=== PATIENT | male | born 1935 | race Caucasian/White ===

== ENCOUNTER 2023-08-03 11:02 | Outpatient (CLI) | payer MEDICARE, SELFPAY | END 2023-08-03 11:03 | disposition home or self-care (01) | PROVIDERS: PCP Family Medicine; Visit Provider Family Medicine | DX: I10 Essential (primary) hypertension (principal); E78.5 Hyperlipidemia, unspecified; R35.1 Nocturia; G47.00 Insomnia, unspecified; R80.9 Proteinuria, unspecified; N40.1 Benign prostatic hyperplasia with lower urinary tract symptoms | CPT/HCPCS: 80053; 80061; 82043; 82570; 87086; 87186; G0103 ==

== ENCOUNTER 2023-09-29 12:46 | Outpatient (CLI) | payer MEDICARE, SELFPAY | END 2023-09-29 12:47 | disposition home or self-care (01) | LOC: NFLDREF 09-30 08:15 | PROVIDERS: PCP Family Medicine; Referring Provider Family Medicine; Visit Provider Family Medicine | DX: N39.0 Urinary tract infection, site not specified (principal) | CPT/HCPCS: 87086 ==

== ENCOUNTER 2023-12-29 12:47 | Outpatient (CLI) | payer MEDICARE, SELFPAY | END 2023-12-29 12:48 | disposition home or self-care (01) | LOC: LKVREF 12:48 | PROVIDERS: PCP Family Medicine; Visit Provider Family Medicine | DX: N39.0 Urinary tract infection, site not specified (principal) | CPT/HCPCS: 87086 ==

== ENCOUNTER 2024-03-04 14:57 | Outpatient (CLI) | payer MEDICARE, SELFPAY | END 2024-03-04 14:58 | disposition home or self-care (01) | LOC: NFLDREF 03-05 18:59 | PROVIDERS: PCP Family Medicine; Referring Provider Family Medicine; Visit Provider Family Medicine | DX: N39.0 Urinary tract infection, site not specified (principal); B96.5 Pseudomonas (aeruginosa) (mallei) (pseudomallei) as the cause of diseases classified elsewhere | CPT/HCPCS: 87086; 87186 ==

== ENCOUNTER 2024-03-29 12:19 | Outpatient (CLI) | payer MEDICARE, SELFPAY | END 2024-03-29 12:20 | disposition home or self-care (01) | LOC: LKVREF 12:24 | PROVIDERS: PCP Family Medicine; Visit Provider Family Medicine | DX: I10 Essential (primary) hypertension (principal); N39.0 Urinary tract infection, site not specified | CPT/HCPCS: 80048; 87086 ==

== ENCOUNTER 2024-04-29 12:30 | Outpatient (CLI) | payer MEDICARE, SELFPAY | END 2024-04-29 12:31 | disposition home or self-care (01) | LOC: LKVREF 12:30 | PROVIDERS: PCP Family Medicine; Visit Provider Nurse Practitioner Family | DX: L03.116 Cellulitis of left lower limb (principal); B96.5 Pseudomonas (aeruginosa) (mallei) (pseudomallei) as the cause of diseases classified elsewhere; B95.2 Enterococcus as the cause of diseases classified elsewhere | CPT/HCPCS: 87070; 87186 ==

== ENCOUNTER 2024-06-02 09:29 | Outpatient (CLI) | payer MEDICARE, SELFPAY | END 2024-06-02 09:30 | disposition home or self-care (01) | LOC: WOUND 09:29 | PROVIDERS: PCP Family Medicine; Visit Provider Nurse Practitioner Family | DX: I87.2 Venous insufficiency (chronic) (peripheral) (principal); I73.9 Peripheral vascular disease, unspecified; L97.222 Non-pressure chronic ulcer of left calf with fat layer exposed; L97.212 Non-pressure chronic ulcer of right calf with fat layer exposed; L97.818 Non-pressure chronic ulcer of other part of right lower leg with other specified severity; E11.42 Type 2 diabetes mellitus with diabetic polyneuropathy; Z79.84 Long term (current) use of oral hypoglycemic drugs | CPT/HCPCS: 11042; G0463 ==

== ENCOUNTER 2024-06-10 14:16 | Outpatient (CLI) | payer MEDICARE, SELFPAY | END 2024-06-10 14:17 | disposition home or self-care (01) | LOC: WOUND 14:16 | PROVIDERS: PCP Family Medicine; Visit Provider Nurse Practitioner Family | DX: I87.2 Venous insufficiency (chronic) (peripheral) (principal); I89.0 Lymphedema, not elsewhere classified; I73.9 Peripheral vascular disease, unspecified; L97.222 Non-pressure chronic ulcer of left calf with fat layer exposed; L97.212 Non-pressure chronic ulcer of right calf with fat layer exposed; L97.812 Non-pressure chronic ulcer of other part of right lower leg with fat layer exposed; E11.42 Type 2 diabetes mellitus with diabetic polyneuropathy; Z79.84 Long term (current) use of oral hypoglycemic drugs | CPT/HCPCS: 11042; 97597 ==

== ENCOUNTER 2024-06-17 09:59 | Outpatient (CLI) | payer MEDICARE, SELFPAY | END 2024-06-17 10:00 | disposition home or self-care (01) | LOC: WOUND 09:59 | PROVIDERS: PCP Family Medicine; Visit Provider Nurse Practitioner Family | DX: I87.2 Venous insufficiency (chronic) (peripheral) (principal); I89.0 Lymphedema, not elsewhere classified; I73.9 Peripheral vascular disease, unspecified; L97.222 Non-pressure chronic ulcer of left calf with fat layer exposed; L97.811 Non-pressure chronic ulcer of other part of right lower leg limited to breakdown of skin; E11.42 Type 2 diabetes mellitus with diabetic polyneuropathy; Z79.84 Long term (current) use of oral hypoglycemic drugs | CPT/HCPCS: 11042; 97597 ==

== ENCOUNTER 2024-07-08 13:16 | Outpatient (CLI) | payer MEDICARE, SELFPAY | END 2024-07-08 13:17 | disposition home or self-care (01) | PROVIDERS: PCP Family Medicine; Visit Provider Nurse Practitioner Family | DX: I89.0 Lymphedema, not elsewhere classified (principal); I73.9 Peripheral vascular disease, unspecified; E11.42 Type 2 diabetes mellitus with diabetic polyneuropathy; Z79.84 Long term (current) use of oral hypoglycemic drugs | CPT/HCPCS: G0463 ==

== ENCOUNTER 2024-09-09 13:50 | Outpatient (CLI) | payer MEDICARE, SELFPAY | END 2024-09-09 13:51 | disposition home or self-care (01) | LOC: NFLDREF 09-13 18:41 | PROVIDERS: PCP Family Medicine; Referring Provider Family Medicine | DX: R30.0 Dysuria (principal); N39.0 Urinary tract infection, site not specified | CPT/HCPCS: 87086 ==

== ENCOUNTER 2024-10-24 11:16 | Outpatient (CLI) | payer MEDICARE, SELFPAY | END 2024-10-24 11:17 | disposition home or self-care (01) | PROVIDERS: PCP Family Medicine; Visit Provider Family Medicine | DX: D64.9 Anemia, unspecified (principal); E78.5 Hyperlipidemia, unspecified; I10 Essential (primary) hypertension; E11.42 Type 2 diabetes mellitus with diabetic polyneuropathy; R26.81 Unsteadiness on feet; Z12.5 Encounter for screening for malignant neoplasm of prostate | CPT/HCPCS: 80053; 80061; 82043; 82570; 82607; 82728; 83540; 83550; G0103 ==

== ENCOUNTER 2024-11-09 09:01 | Outpatient (CLI) | payer MEDICARE, SELFPAY ==
[2024-11-09 10:45] LABS: Basophils Absolute Auto 0.03 K/uL (0.00-0.30); Basophils Percent Auto 0.5 % (0.0-3.0); Eosinophils Absolute Auto 0.06 K/uL (0.00-0.50); Eosinophils Percent Auto 1.1 % (0.0-7.0); Hematocrit 38.4 % (37.0-53.0); Hemoglobin* 12.2 gm/dL (13.5-17.5); Immature Granulocytes Abs Auto 0.01 K/uL (0.00-0.30); Immature Granulocytes Pct Auto 0.2 %; Lymphocytes Percent Auto 17.9 % (20-44); Mean Corpuscular HGB Conc 32 gm/dL (32-36); Mean Corpuscular Hemoglobin 29 pg (26-34); Mean Corpuscular Volume 91 fL (80-100); Monocytes Percent Auto 12.8 % (0.0-11.0); Neutrophils Percent Auto 67.5 % (42.0-72.0); Platelet Count* 177 K/uL (140-440); RDW Coefficient of Variation % 14.4 % (11.5-15.5); Red Blood Count 4.24 m/uL (4.30-5.90); White Blood Count* 5.48 K/uL (4.50-11.00)
--- NOTE | 2024-11-09 10:45 | CRLHL7_ITS ---
For Patients: As a result of the Cures Act, medical imaging exams and procedure reports are released immediately into your electronic medical record. You may view this report before your referring provider. If you have questions, please contact your health care provider. 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 Hammertoe deformities. Degenerative joint disease. No acute periostitis or cortical destruction. No acute fracture. Impression: No evidence of osteomyelitis. Dictated by Fantasma Garcia MD @ 11/09/2024 11:12:19 AM (Electronically Signed)
[2024-11-09 10:50] LABS: Slide Review Reflex No
[2024-11-09 11:10] LABS: Chloride* 100 mmol/L (96-114); Potassium* 3.9 mmol/L (3.6-5.1); Sodium* 138 mmol/L (135-149)
[2024-11-09 11:14] LABS: Anion Gap 10 mEq/L (7-15); Blood Urea Nitrogen* 20 mg/dL (7-30); Calcium* 9.3 mg/dL (8.4-10.6); Carbon Dioxide* 28 mmol/L (20-32); Estimated Glomerular Filt Rate 73 ml/min; Glucose* 176 mg/dL (60-115)
[2024-11-09 11:41] LABS: Erythrocyte SedimentationRate* 15 mm/hr (2-15)
== END 2024-11-09 09:02 | disposition home or self-care (01) ==
PROVIDERS: PCP Family Medicine; Referring Provider Family Medicine; Visit Provider Nurse Practitioner Family
DX: I87.2 Venous insufficiency (chronic) (peripheral) (principal); I73.9 Peripheral vascular disease, unspecified; I89.0 Lymphedema, not elsewhere classified; L97.812 Non-pressure chronic ulcer of other part of right lower leg with fat layer exposed; L97.821 Non-pressure chronic ulcer of other part of left lower leg limited to breakdown of skin; S81.002A Unspecified open wound, left knee, initial encounter; E11.621 Type 2 diabetes mellitus with foot ulcer; E11.42 Type 2 diabetes mellitus with diabetic polyneuropathy; L97.511 Non-pressure chronic ulcer of other part of right foot limited to breakdown of skin; Z79.84 Long term (current) use of oral hypoglycemic drugs
CPT/HCPCS: 11042; 11045; 36415; 73630; 80048; 85025; 85651; 86140; G0463

== ENCOUNTER 2024-11-16 09:30 | Outpatient (CLI) | payer MEDICARE, SELFPAY | END 2024-11-16 09:31 | disposition home or self-care (01) | LOC: WOUND 09:30 | PROVIDERS: PCP Family Medicine; Visit Provider Family Medicine | DX: I87.2 Venous insufficiency (chronic) (peripheral) (principal); I89.0 Lymphedema, not elsewhere classified; I73.9 Peripheral vascular disease, unspecified; L97.822 Non-pressure chronic ulcer of other part of left lower leg with fat layer exposed; L97.812 Non-pressure chronic ulcer of other part of right lower leg with fat layer exposed; E11.42 Type 2 diabetes mellitus with diabetic polyneuropathy; Z79.84 Long term (current) use of oral hypoglycemic drugs | CPT/HCPCS: 11042; 11045 ==

== ENCOUNTER 2024-11-22 09:43 | Outpatient (CLI) | payer MEDICARE, SELFPAY | END 2024-11-22 09:44 | disposition home or self-care (01) | LOC: WOUND 09:43 | PROVIDERS: PCP Family Medicine; Visit Provider Physician Assistant | DX: I87.2 Venous insufficiency (chronic) (peripheral) (principal); I89.0 Lymphedema, not elsewhere classified; I73.9 Peripheral vascular disease, unspecified; L97.812 Non-pressure chronic ulcer of other part of right lower leg with fat layer exposed; L97.822 Non-pressure chronic ulcer of other part of left lower leg with fat layer exposed; E11.42 Type 2 diabetes mellitus with diabetic polyneuropathy; Z79.84 Long term (current) use of oral hypoglycemic drugs | CPT/HCPCS: 97597; 97598 ==

== ENCOUNTER 2024-11-25 13:17 | Emergency (ER) | payer MEDICARE, SELFPAY ==
[2024-11-25] VITALS (35 sets, daily range): BP systolic 161–206; BP diastolic 104–145; PULSE 79–107; RESP 15–23; TEMP 36.3; O2SAT 91–98
--- OUTSIDE RECORDS SUMMARY | 2024-11-25 13:20 | XMS_ITS | Clinical Summary ---
Author Organization [place] Address [facility] 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 and other lower urinary tract symptoms (LUTS) 1 TABLET DAILY 90 4 4 Active ZOLOFT 50 MG OR TABSIndications:Un specified acute reaction to stress,Diplopia 1 TAB PO QD (Once per day) 30 1 4 Active RESTORIL 7.5 MG OR CAPSIndications:Un specified acute reaction to stress,Diplopia 1 CAPSULE AT BEDTIME NEEDED 7 0 4 Active RESTORIL 15 MG OR CAPS 1-2 CAPSULE AT BEDTIME NEEDED 20 0 4 Active VIAGRA 50 MG OR TABS 1 TABLET DAILY NEEDED 6 12 4 Active ZOCOR 40 MG OR TABSIndications:Mi xed hyperlipidemia 1 Tab PO QD (Once per day) IN THE EVENING 30 4 5 Active TRIAMTERENE-HCTZ 37.5-25 MG OR TABS 1 TABLET DAILY 30 no add'l refills until MD appt. 5 Active ACIPHEX 20 MG OR TBEC 1 TABLET EVERY MORNING 30 No add'l refills until MD appt. 5 Active Active Problems Problem Noted Date Diagnosed Date Mixed hyperlipidemia 12/19/2003 Esophageal reflux 12/19/2003 Essential hypertension 12/19/2003 Overview (02/22/2015): Problem list name updated by automated process. Provider to review Immunizations Immunization Administration Dates Next Due TD,PF 7+ (Tenivac) 03/15/1997 Family History Medical History Relation Comments Cancer Brother 61 YO A NEURYSM / MELANOMA Cancer Father 77 YO T HROAT CANCER Family History Negative Mother 86 YO Cancer Sister 1 74 YO BREAST Cancer Sister 2 72 YO BREAST & U TERINE Cancer Sister 3 70 YO NOSE CANCE R Relation Status Comments Brother Father Mother Sister 1 Sister 2 Sister 3 Social History Tobacco Use Types Packs/Day Years Used Date Smoking Tobacco: Former Cigarettes Q uit: 01/06/1972 Alcohol Use Standard Drinks/Week Comments Yes 0 (1 standard drink = 0.6 oz pur e alcohol) 2 PER DAY Adolescent Education Answer Date Record ed Getting School Help Needed Not on file 08/17 Sex and Gender Information Value Date Recorded Sex Assigned at Not on file Legal Sex Male 3:15 AM [employer] Gender Identity Not on file Sexual Orientation Not on file Last Filed Vital Signs Vital Sign Reading Time Taken Comments Blood Pressure 157/99 08/18/2023 12:00 PM CDT Pulse 94 08/18/2023 12:00 PM CDT Temperature 36.4 C (97.5 F) 08/18/2023 8:35 AM CDT Respiratory Rate 20 08/18/2023 8:35 AM CDT Oxygen Saturation 96% 08/18/2023 12:00 PM CDT Inhaled Oxygen Concentration - - Weight 120.2 kg (265 lb) 08/18/2023 8:35 AM CDT Height 190.5 cm (6' 3) 03/07/2004 2:18 PM CDT Body Mass Index - - Plan of Treatment Health Maintenance Due Date Last Done Comments ADVANCE CARE PLANNING 1937 ANNUAL REVIEW OF HM ORDERS 1937 FALL RISK ASSESSMENT 2002 MEDICARE ANNUAL WELLNESS VISIT 2002 LIPID 08/28/2005 08/28/2004, 12/19/2003 RSV VACCINE (1 - 1-dose 75+ series) 2012 ZOSTER VACCINE (2 of 3) 02/02/2016 12/08/2015 COVID-19 VACCINE ( season) 2024 11/13/2021 PHQ-2 (once per calendar year) 2024 BMP 08/17/2024 08/18/2023, 07/23, 12/19/2003, Additional history exists INFLUENZA VACCINE (Season Ended) 2025 02/05/2021, 03/01/2020, 03/26/2019, Additional history exists DTAP/TDAP/TD VACCINE (3 - Td or Tdap) 03/26/2026 03/26/2016, 01/20/2006, 03/15/1997, Additional history exists PNEUMOCOCCAL VACCINE 50+ YEARS Completed 02/07/2015, 07/05/2014, 05/13/2005 HPV VACCINE Aged Out No longer eligi ble based on patient's age to complete this topic MENINGITIS VACCINE Aged Out No longer eligible based on patient's age to complete this topic Procedures Procedure Name Priority Date/Time Associated Diagnosis Comments BASIC METABOLIC PANEL STAT 08/18/2023 8:37 AM CDT CL AFF A.M.A. LIPID PANEL Routine 08/28/2004 10:41 AM CDT Mixed Hyperlipidemia from Last 3 Months or Most Recently Relevant to Health Maintenance Results * (ABNORMAL) Basic metabolic panel (08/18/2023 8:37 AM CDT) [facility] Sodium 138 135 - 145 mmol/L 08/18/2023 9:19 AM CDT [facility] Comment:Reference intervals for this test were updated on 02/17/2023 to more accurately reflect our healthy population. There may be differences in the flagging of prior results with similar values performed with this method. Interpretation of those prior results can be made in the context of the updated reference intervals. Potassium 4.1 3.4 - 5.3 mmol/L 08/18/2023 9:19 AM CDT [facility] Chloride 100 98 - 107 mmol/L 08/18/2023 9:19 AM CDT [facility] Carbon Dioxide (CO2) 21(L) 22 - 29 mmol/L 08/18/2023 9:19 AM CDT [facility] Anion Gap 17(H) 7 - 15 mmol/L 08/18/2023 9:19 AM CDT [facility] Urea Nitrogen 20.6 8.0 - 23.0 mg/dL 08/18/2023 9:19 AM CDT [facility] Creatinine 0.97 0.67 - 1.17 mg/dL 08/18/2023 9:19 AM CDT LABORATORY GFR Estimate 76 >60 mL/min/1. 73m2 08/18/2023 9:19 AM CDT LABORATORY Calcium 9.9 8.8 - 10.2 mg/dL 08/18/2023 9:19 AM CDT LABORATORY Glucose 223(H) 70 - 99 mg/dL 08/18/2023 9:19 AM CDT LABORATORY Blood BLOOD SPECIMEN / Unknown Venipuncture / Unknown 08/18/2023 8:37 AM CDT 08/18/2023 8:46 AM CDT us Magdi Mott MD LAB - BLOOD ORDERABLES Fi nal Result LABORATORY [facility] [address] Lab (1st floor, no room number) [place] [id number] * (ABNORMAL) A.M.A. LIPID PANEL (08/28/2004 10:41 AM CDT) [facility] Cholesterol 199 0 - 200 mg/dL [facility] Comment: Cholesterol Reference Range: <200 The NCEP recommends further evaluation of: 1. Patients with cholesterol greater than 200 mg/dL if additional risk factors are present. 2. All patients with a cholesterol greater than 240 mg/dL. Triglycerides 211(H) 0 - 150 mg/dL [facility] HDL Cholesterol 35(L) >40 mg/dL [facility] [place] LDL Cholesterol Calculated 122 0 - 129 mg/dL [facility] VLDL-Cholesterol 42(H) 0 - 30 mg/dL [facility] Cholesterol/HDL Ratio 5.7(H) 0.0 - 5.0 [facility] 08/28/2004 10:4 1 AM CDT 08/28/2004 10:46 AM CDT us Mikel Stratton MD LABORATORY Final Result [facility] [address] [place] [address] from Last 3 Months or Most Recently Relevant to Health Maintenance Insurance * Guarantor: BRAD GUSMAN Account Type Relation to Patient Date of Phone Billing Address Personal/Family [address] [facility] [address] [place] [phone] [employer] MED[employer]ARE [employer]VANTAGE [employer] MED[employer]ARE ADVANTAGE * Guarantor: BRAD GUSMAN Account Type Relation to Patient Date of Phone Billing Address Personal/Family [address] [facility] [address] [place] [phone] [employer] MED[employer]ARE [employer]VANTAGE [employer]AGE Care Teams Stitch Separator Relationship Specialty Start Date End Date [facility] - [address] [address] PCP - General Internal Medicine 08/18/23
--- OUTSIDE RECORDS SUMMARY | 2024-11-25 13:20 | XMS_ITS | Continuity of Care Document ---
Author Organization [facility] Address [address] [place] [address] Care Team Providers Care Motor Expert Name Role Phone Elsewhere, Pcp Primary Care Provider Unavailabl e Source Comments Patient records contain information from all sites at [facility]. For routine questions regarding patient records, call [phone] during business hours, M-F 8:00 AM - 5:00 PM Central Time. Record requests for emergency care only can be directed to [phone] at any time.[facility] Encounters Date Type Department Care Team Description 5 Orders Only [facility] Reynaldo Anna M.D. 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 Med Refill 4 Refill Department of Family Medicine in [place], [place] [address] [place] [address] Reynaldo Pinto M.D. Med Refill 4 Refill Department of Family Medicine in [place], [place] [address] [place] [address] Reynaldo Pinto M.D. Med Refill 4 Orders Only [facility] Reynaldo Anna M.D. 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 Med Refill [address] [facility] 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. 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 Impaction Fecal (HCC) (Primary Dx) Discharge Disposition: Home or Self Care 3 9:12 AM CDT - 3 11:59 PM CDT Hospital Encounter Department of Laboratory Medicine in [address] [address] Estiven Merrill M.D. Atrial Fibrillation Longstanding Persistent (HCC) Discharge Disposition: Home or Self Care 3 11:15 AM CDT Office Visit Department of Orthopedic Surgery in [place], [place] [address] [place] [phone] Yudith Guallpa D.P.M. 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 3 Clinical Communication Department of Family Medicine in [address] [address] Reynaldo Pinto M.D. Forms (Home [facility] Care [facility] POC (cert 08/16-10/14/22) [id number]) 3 Clinical Communication Department of Family Medicine in [address] [address] Reynaldo Pinto M.D. 3 3:45 PM TUBER MACHINE OPERATOR HELPER - 3 12:03 AM TUBER MACHINE OPERATOR HELPER Emergency [facility] [address] [place] [phone] Erich Marti M.D. Scharrer, Erik A, M.D. Rhabdomyolysis (Primary Dx); Failure Renal Acute (Acute Kidney Injury) (HCC); Delirium; Decline Functional Status; Dehydration; Change Mental Status; Shock (HCC) Discharge Disposition: [facility] 3 10:30 PM TUBER MACHINE OPERATOR HELPER Ancillary Procedure Department of Emergency Medicine 3 8:10 PM TUBER MACHINE OPERATOR HELPER Ancillary Procedure Department of Family Medicine 3 Refill Department of Family Medicine in [address] [address] Reynaldo Pinto M.D. Med Refill 3 Refill Department of Family Medicine in [address] [place] [address] Reynaldo Pinto M.D. Med Refill 3 Refill Department of Family Medicine in [place] [address] [place] [address] Reynaldo Pinto M.D. Med Refill 3 Refill Department of Family Medicine in [place] [address] [place] [address] Reynaldo Pinto M.D. Med Refill 3 11:15 AM TUBER MACHINE OPERATOR HELPER Office Visit Department of Orthopedic Surgery in [address] [address] Yudith Guallpa D.P.M. 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 Nocturia (Primary Dx); Cancer Renal Cell Carcinoma Personal History; Nephrectomy Status Post; Solitary Kidney Acquired Discharge Disposition: Home or Self Care 3 11:00 AM TUBER MACHINE OPERATOR HELPER Nurse Only Department of Urology in [address] [address] Reynaldo Pinto M.D. Weiers, Jennifer J, RMarenNMaren Nurse Visit (Voiding diary forms and teaching) Discharge Disposition: Home or Self Care 3 10:27 AM TUBER MACHINE OPERATOR HELPER - 3 11:59 PM TUBER MACHINE OPERATOR HELPER Hospital Encounter Department of Laboratory Medicine in [address] [address] Addy Altamirano M.D. Benign Prostatic Hyperplasia Without Obstruction Discharge Disposition: Home or Self Care 3 Clinical Communication Department of Urology in [place], [place] [address] [place] [address] Nelly Neri, Ashok. 2 Clinical Communication Department of Family Medicine in [address] [phone] Reynaldo Pinto M.D. Communication 2 Refill Department of Family Medicine in [address] [address] Reynaldo Pinto M.D. Med Refill 2 Orders Only Department of Family Medicine in [address] [phone] Reynaldo Pinto M.D. 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 Benign Prostatic Hyperplasia Without Obstruction; Nocturia; Slowing Urinary Stream; Cancer Renal Cell Carcinoma Personal History; Nephrectomy Status Post; Solitary Kidney Acquired 2 Refill Department of [facility] in [address] [phone] Reynaldo Pinto M.D. Med Refill 2 1:45 PM TUBER MACHINE OPERATOR HELPER Office Visit Department of Orthopedic Surgery in [address] [phone] Margo Roblero APRN, C.N.P., M.S.N. Wound Foot Open Subsequent Right (Primary Dx) Discharge Disposition: Home or Self Care 2 12:21 PM CDT - 2 12:29 PM CDT Hospital Encounter Department of Laboratory Medicine in [address] [phone] Brent Gutierrez APRN, C.N.P., M.S. Benign Prostatic Hyperplasia Without Obstruction; Nocturia; Cancer Renal Cell Carcinoma Personal History; Nephrectomy Status Post; Solitary Kidney Acquired Discharge Disposition: Home or Self Care 2 12:30 PM CDT - 2 11:59 PM CDT Hospital Encounter Department of Radiology in [address] [address] Brent Gutierrez APRN C.N.P., M.S. Benign Prostatic Hyperplasia Without Obstruction; Nocturia; Cancer Renal Cell Carcinoma Personal History; Nephrectomy Status Post; Solitary Kidney Acquired Discharge Disposition: Home or Self Care 2 11:00 AM CDT Comprehensive Visit Department of Urology in [address] [phone] Brent Gutierrez APRN, C.N.P., M.S. Benign Prostatic Hyperplasia Without Obstruction (Primary Dx); Nocturia; Slowing Urinary Stream; Cancer Renal Cell Carcinoma Personal History; Nephrectomy Status Post; Solitary Kidney Acquired Discharge Disposition: Home or Self Care 2 Refill Department of Family Medicine in [place], [place] [address] [place] [phone] Reynaldo iPnto M.D. Med Refill 2 Clinical Communication Department of Orthopedic Surgery in [address] [phone] Margo Roblero APRN C.N.P., M.S.N. 2 11:25 AM CDT Ancillary Procedure Department of Wound Ostomy 2 11:15 AM CDT Nurse Only Department of Urology in [address] [address] Yudith Guallpa D.P.MMercedez Tapia, R.NMaren Nurse Visit (Routine nail care) Discharge Disposition: Home or Self Care 2 Refill Department of Family Medicine in [address] [address] Reynaldo Pinto M.D. Med Refill 2 Refill Department of Family Medicine in [address] [address] Reynaldo Pinto M.D. Med Refill 2 Refill Department of Family Medicine in [address] [address] Reynaldo Pinto M.D. Med Refill 2 11:45 AM CDT Comprehensive Visit Department of Orthopedic Surgery in [address] [address] Yudith Guallpa D.P.M. 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, in [address] [address] Natalie Escobar APRN, C.N.P., D.N.P. Injury Toenail Initial Left Discharge Disposition: Home or Self Care 2 11:00 AM CDT Office Visit Urgent Care, [facility], in [address] [place] [address] Natalie Escobar APRN, C.N.P., D.N.P. Injury Toenail Initial Left (Primary Dx) 2 Orders Only Department of Family Medicine in [address] [address] Reynaldo Pinto M.D. 2 11:30 AM CDT Office Visit Department of Family Medicine in [address] [address] Reynaldo Pinto M.D. 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 2 Refill Department of Family Medicine in [address] [address] Reynaldo Pinto M.D. Med Refill (Nortriptyline/) 2 Refill Department of Family Medicine in [address] [address] Reynaldo Pinto M.D. Med Refill 2 Refill Department of Family Medicine in [address] [address] Reynaldo Pinto M.D. Med Refill 2 Refill Department of Family Medicine in [address] [address] Adelina Harris, Klaus Med Refill 2 Refill Department of Family Medicine in [address] [address] Reynaldo Pinto M.D. Med Refill 2 Clinical Communication Department of Family Medicine in [address] [address] Reynaldo Pinto M.D. Med Refill 2 Refill Department of Family Medicine in [address] [address] Reynaldo Pinto M.D. Med Refill 2 Refill Department of Family Medicine in [address] [address] Reynaldo Pinto M.D. Med Refill 2 11:30 AM TUBER MACHINE OPERATOR HELPER Office Visit Department of Family Medicine in [address] [address] Reynaldo Pinto M.D. 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 Med Refill [address] [facility] MNT Zurdo Ventura D.O. 1 Refill Department of Family Medicine in [address] [address] Reynaldo Pinto M.D. Med Refill 1 Refill Department of Family Medicine in [address] [address] Reynaldo Pinto M.D. Med Refill 1 Clinical Communication Department of Family Medicine in [address] [address] Reynaldo Pinto M.D. 1 Refill Department of Family Medicine in [address] [address] Reynaldo Pinto M.D. Med Refill 1 Refill Department of Family Medicine in [address] [address] Reynaldo Pinto M.D. Med Refill 1 Refill Department of Family Medicine in [address] [address] Reynaldo Pinto M.D. Med Refill 1 Orders Only Department of Family Medicine in [address] [address] Reynaldo Pinto M.D. 1 11:00 AM CDT Comprehensive Visit Department of Orthopedic Surgery in [place], [place] [address] [place] [address] Yudith Guallpa D.P.M. 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 Discharge Disposition: Home or Self Care 1 10:30 AM CDT Office Visit Department of Family Medicine in [address] [address] Reynaldo Pinto M.D. 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 1 10:46 AM CDT Hospital Encounter Department of Laboratory Medicine in [address] [address] Reynaldo Pinto M.D. 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 Med Refill 1 Refill Department of Family Medicine in [address] [address] Reynaldo Pinto M.D. Med Refill 1 Refill Department of Family Medicine in [address] [address] Reynaldo Pinto M.D. Med Refill 1 Refill Department of Family Medicine in [address] [address] Reynaldo Pinto M.D. Med Refill 1 Refill Department of Family Medicine in [address] [address] Reynaldo Pinto M.D. Med Refill 1 Refill Department of Family Medicine in [place] [address] [place] [address] Reynaldo Pinto M.D. Med Refill 1 Orders Only [facility] Estiven Johnson Jr., M.D. 1 Refill Department of Family Medicine in [address] [address] Reynaldo Pinto M.D. Med Refill 1 Clinical Communication Department of Orthopedic Surgery in [place], [place] [address] [place] [address] Line, Covid Help COVID Inquiry 0 Orders Only Department of Family Medicine in [address] [address] Reynaldo Pinto M.D. 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 0 10:30 AM TUBER MACHINE OPERATOR HELPER Office Visit Department of Family Medicine in [place] [address] [place] [address] Reynaldo Pinto M.D. 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 Med Refill 0 Refill Department of Family Medicine in [address] [address] Reynaldo Pinto M.D. Med Refill (Ferrous Sulfate) 0 Refill Department of Family Medicine in [address] [address] Reynaldo Pinto M.D. Med Refill 0 Refill Department of Family Medicine in [address] [address] Reynaldo Pinto M.D. Med Refill 0 Refill Department of Family Medicine in [address] [address] Reynaldo Pinto M.D. Med Refill (Furosemide) 0 Refill Department of Family Medicine in [address] [address] Reynaldo Pinto M.D. Med Refill (metFORMIN) 0 Refill Department of Family Medicine in [address] [address] Reynaldo Pinto M.D. Med Refill 0 Documentation Department of Family Medicine in [address] [address] Reynaldo Pinto M.D. Hyperglycemia 0 10:30 AM CDT Office Visit Department of Family Medicine in [address] [address] Reynaldo Pinto M.D. 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 Med Refill 0 Refill Department of Family Medicine in [address] [address] Reynaldo Pinto M.D. Med Refill (Lasix and Senna) 0 Refill Department of Family Medicine in [address] [address] Reynaldo Pinto M.D. Med Refill 0 Refill Department of Family Medicine in [address] [address] Reynaldo Pinto M.D. Med Refill (furosemide) 0 Clinical Communication Department of Family Medicine in [address] [address] Reynaldo Pinto M.D. Communication 0 10:30 AM TUBER MACHINE OPERATOR HELPER Office Visit Department of Family Medicine in [address] [address] Reynaldo Pinto M.D. 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 Med Refill 9 Refill Department of Family Medicine in [place] [address] [place] [address] Reynaldo Pinto M.D. Med Refill 9 10:30 AM TUBER MACHINE OPERATOR HELPER Office Visit Department of Family Medicine in [place] [address] [place] [address] Reynaldo Pinto M.D. 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 Med Refill 9 10:15 AM CDT Nurse Only Department of Family Medicine in [place] [address] [place] [address] Savannah Blanco, R.NMaren Med Management (needs refills) 9 10:30 AM CDT Office Visit Department of Family [facility] in [address] [address] Reynaldo Pinto M.D. 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 Denilson Bui [address] [facility] [place] [address] Provider, Historical 9 11:00 AM CDT Comprehensive Visit Department of Family Medicine in [place] [address] [place] [address] Reynaldo Pinto M.D. 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 Discharge Disposition: Home or Self Care 9 8:38 AM CDT - 9 11:59 PM CDT Hospital Encounter Department of Cardiovascular Diseases in [place], [place] [address] [place] [address] Daly eMjias M.D. Discharge Disposition: Home or Self Care 9 8:18 AM CDT - 9 11:59 PM CDT Hospital Encounter Department of Radiology in [address] [address] Daly Mejias M.D. Dyspnea On Exertion Discharge Disposition: Home or Self Care 9 8:27 PM TUBER MACHINE OPERATOR HELPER - 9 2:25 AM TUBER MACHINE OPERATOR HELPER Emergency [facility] [address] [place] [phone] Melanie Albert D.O. Abdominal Pain (Primary Dx) Discharge Disposition: Home or Self Care 8 Clinical Communication Department of Family Medicine in [address] [address] Anjali Thompson L.P.N. 7 Abstract Department of Family Medicine in [address] [address] Provider, Historical 7 12:16 PM CDT - 7 1:42 PM CDT [facility] M.[facility] 7 10:13 AM CDT - 7 11:59 PM CDT Hospital Encounter [facility] Morris Siddiqui M.D. 7 10:15 AM CDT - 7 11:59 PM CDT Hospital Encounter [facility] LAB Morris Davis M.D. 7 4:45 AM CDT - 7 11:59 PM CDT Hospital Encounter HX NO Morris Dexter M.D. 7 9:49 AM CDT - 7 11:59 PM CDT Hospital Encounter [facility] Morris Siddiqui M.D. 7 8:55 AM TUBER MACHINE OPERATOR HELPER - 7 1:10 PM TUBER MACHINE OPERATOR HELPER Emergency [facility]X [facility] Teja Melgar M.D. 7 9:22 PM TUBER MACHINE OPERATOR HELPER - 7 11:59 PM TUBER MACHINE OPERATOR HELPER Hospital Encounter HX NO Morris Dexter M.D. 7 11:00 AM TUBER MACHINE OPERATOR HELPER - 7 11:59 PM TUBER MACHINE OPERATOR HELPER Hospital Encounter [facility] Morris Siddiqui M.D. 7 9:02 AM TUBER MACHINE OPERATOR HELPER - 7 11:59 PM TUBER MACHINE OPERATOR HELPER Hospital Encounter [facility] Morris Siddiqui M.D. 7 8:51 AM TUBER MACHINE OPERATOR HELPER - 7 11:59 PM TUBER MACHINE OPERATOR HELPER Hospital Encounter [facility] Anthony Crook Jr., M.D. 7 12:27 PM TUBER MACHINE OPERATOR HELPER - 7 11:59 PM TUBER MACHINE OPERATOR HELPER Hospital Encounter [facility] Morris Siddiqui M.D. 7 3:59 AM TUBER MACHINE OPERATOR HELPER - 7 11:59 PM TUBER MACHINE OPERATOR HELPER Hospital Encounter HX NO Morris Dexter M.D. 6 9:36 PM TUBER MACHINE OPERATOR HELPER - 6 12:09 AM TUBER MACHINE OPERATOR HELPER Emergency [facility]X [facility] ED Genny Ramachandran M.D. Allergies Active Allergy Reactions Criticality Noted Date Comments Pregabalin Edema (Reselect Reaction) 06/20/2016 Medications calcium carbonate-vitam in D3 1,500 mg (600 mg calcium)-200 unit per tablet Take 1 tablet by mouth 2 (two) times a day. 6 Active MULTIVITAMIN ORAL daily. 6 Active omega 6-hbv-xvk-fish oil 1,000 mg (120 mg-180 mg) capsule Take 1 capsule by mouth daily. 6 Active rOPINIRole (for_REQUIP) 1 mg tablet Take 1 tablet by mouth at bedtime. 7 Active aspirin 81 mg capsule Take 81 mg by mouth daily. 7 Active polyethylene glycol (MIRALAX) 17 gram powder packet Take 17 g by mouth daily. Dissolve each 17 g dose in 240 mLs (8 ounces) of beverage. Active lisinopriL (PRINIVIL,ZESTR IL) 40 mg tablet TAKE ONE TABLET BY MOUTH EVERY DAY 90 tablet 3 2 Active finasteride (PROSCAR) 5 mg tablet TAKE ONE TABLET BY MOUTH EVERY DAY 90 tablet 3 2 Active omeprazole (PriLOSEC) [address] capsule TAKE ONE CAPSULE BY MOUTH EVERY MORNING BEFORE BREAKFAST. 180 capsule 2 Active DULoxetine (CYMBALTA) [address] capsule TAKE ONE CAPSULE BY MOUTH EVERY DAY 90 capsule 3 2 Active DULoxetine (CYMBALTA) [address] capsule TAKE ONE CAPSULE BY MOUTH EVERY DAY 90 capsule 3 2 Active rosuvastatin (CRESTOR) 20 mg tablet TAKE ONE TABLET BY MOUTH AT BEDTIME 90 tablet 3 2 Active furosemide (LASIX) 20 mg tablet TAKE ONE TABLET BY MOUTH EVERY DAY 90 tablet 3 2 Active glipiZIDE (GLUCOTROL XL) 10 mg 24 hr tablet Take 2 tablets (20 mg total) by mouth daily. 180 tablet 3 2 Active nortriptyline (PAMELOR) 10 mg capsule TAKE ONE CAPSULE BY MOUTH AT BEDTIME 90 capsule 1 3 Active Additional Information Patient not taking.Reported on 09/09/2022 amLODIPine (NORVASC) 5 mg tablet TAKE ONE TABLET BY MOUTH EVERY DAY 90 tablet 3 3 Active Stimulant Laxative Plus 8.6-50 mg per tablet TAKE ONE TABLET BY MOUTH AT BEDTIME 90 tablet 3 3 Active tamsulosin (FLOMAX) 0.4 mg 24 hr capsule TAKE ONE CAPSULE BY MOUTH EVERY DAY 90 capsule 3 3 Active metFORMIN (GLUCOPHAGE) 1,000 mg tablet TAKE ONE TABLET BY MOUTH TWICE A DAY WITH MEALS 180 tablet 3 3 Active cephalexin (KEFLEX) 500 mg capsule Take 500 mg by mouth 3 (three) times a day. 3 Active DULoxetine (CYMBALTA) [address] capsule Take 60 mg by mouth. Active pantoprazole (PROTONIX) 40 mg EC tablet Take 40 mg by mouth daily. 3 Active ARIPiprazole (ABILIFY) 2 mg tablet Take 2 mg by mouth at bedtime. 3 Active furosemide (LASIX) 40 mg tablet Take 40 mg by mouth. 3 Active FeroSuL 325 mg (65 mg iron) tablet Take 1 tablet by mouth daily. Patient needs Office Visit and Labs for further refills. 30 tablet 4 Active Active Problems Problem Noted Date Diagnosed Date Nephrectomy Status Post 07/23/2022 Obesity Body Mass Index 30-39.9 Adult 09/22/2016 Diabetes Mellitus Type 2 Charcot Joint 7 Overview (10/14/2016): DM2 Charcot Joint Hypertension Essential Primary 05/27/2016 Overview (10/14/2016): Hypertension (HTN) NOS Diabetes Mellitus Type 2 Peripheral Neuropathy 0 05/27/2016 Overview (10/14/2016): DM2 Peripheral Neuropathy Benign Prostatic Hyperplasia Without Obstruction 05/27/2016 Hernia Ventral 05/27/2016 Hyperlipidemia 05/27/2016 Pain Low Back Unspecified 05/27/2016 Pancreatitis Personal History 05/27/2016 Personal History Of Other Malignant Neoplasm Of Skin 05/27/2016 Immunizations Immunization Administration Dates Next Due H1N1 All Forms 06/13/2009 HZV (ZOSTAVAX) 12/08/2015 HepB Adult 06/06/2021(Deferred: Patient marci robert) HepB, Unspecified 06/06/2021(Deferred: Other) Influenza, Quadrivalent, Adj uvanted, Preservative Free 02/05/2021,03/01/2020 Influenza, Seasonal, Injectable 02/10/2013,02/18,02/20/2011 Influenza, Unspecified 03/19/2016,02/11/2013, PCV13 02/07/2015,07/05/2014 PPSV23 05/13/2005 RZV (SHINGRIX) 06/06/2021(Deferred: Other - insurance),02/20/2020(Deferred: Patient Refused) SARS-COV-2 (COVID-19) - PFIZ ER TS(Discontinued)(12 years or older) 11/13/2021 Td (Adult), adsorbed 03/15/1997 Tdap 03/26/2016 Zoster, Unspecified 06/06/2021(Deferred: Other) influenza trivalent high dos e (HD)(PF) 03/26/2019,02/16/2018,01/23/2017,2015,02/07/2015,03/15/2014 Family History Medical History Relation Name Comments Cancer Father Heart attack Father Breast cancer Sister Relation Name Status Comments Father Sister Social History Smoking Status as of 11/25/2024 Tobacco Use Types Packs/Day Years Used Date Smoking Tobacco: Never Assessed Humiliation, Afraid, Rape, and Kick questionnair e Answer Date Recorded Fear of Current or Ex-Partner No Emotionally Abused Not on file 12/07/2018 Physically Abused Not on file 12/07/2018 Sexually Abused Not on file 12/07/2018 Depression Answer Date Recor ded PHQ-9 Total Score (max 27) 11 11/14 Sex and Gender Information Value Date Recorded Sex Assigned at Not on file Legal Sex Male 4:52 PM TUBER MACHINE OPERATOR HELPER Gender Identity Not on file Sexual Orientation Not on file Last Filed Vital Signs Vital Sign Reading Time Taken Comments Blood Pressure 155/92 10/03/2022 12:00 AM CDT Pulse 82 02/03/2023 11:13 AM CDT Temperature 36.5 C (97.7 F) 02/03/2023 11:13 AM CDT Respiratory Rate 22 10/03/2022 12:00 AM CDT Oxygen Saturation 97% 02/03/2023 11:13 AM CDT Inhaled Oxygen Concentration - - Weight 127 kg (281 lb) 10/02/2022 7:00 PM CDT Height 192 cm (6' 3.6) 10/02/2022 7:00 PM CDT Body Mass Index 34.57 10/02/2022 7:00 PM CDT Plan of Treatment Not on file Procedures Procedure Name Priority Date/Time Associated Diagnosis Comments HC URINALYSIS AUTO W MICRO STAT 10/02/2022 8:29 PM CDT URINALYSIS WITH MICROSCOPIC IF INDICATED, U STAT 10/02/2022 8:29 PM CDT DX ABDOMEN SUPINE AND UPRIGHT 2 VIEWS RAD - Routine (most inpatients and all outpatients) 10/02/2022 8:07 PM CDT BASIC METABOLIC PANEL, S/P Routine 09/23/2022 9:18 AM CDT Atrial Fibrillation Longstanding Persistent (HCC) DX CHEST PORTABLE 1 VIEW RAD - Semiurgent (Fast; most ED patients; some inpatients) 07/23/2022 11:07 PM TUBER MACHINE OPERATOR HELPER EMERGENCY DEPARTMENT IMAGE EXAM Routine 07/23/2022 10:30 PM TUBER MACHINE OPERATOR HELPER LACTATE, B/P STAT 07/23/2022 9:57 PM TUBER MACHINE OPERATOR HELPER BACTERIA / PASTORA CULTURE, BLOOD STAT 07/23/2022 9:57 PM TUBER MACHINE OPERATOR HELPER BACTERIA / PASTORA CULTURE, BLOOD STAT 07/23/2022 9:48 PM TUBER MACHINE OPERATOR HELPER FAMILY MEDICINE IMAGE EXAM Routine 07/23/2022 8:09 PM TUBER MACHINE OPERATOR HELPER TROPONIN T, 2H/6H, 5TH GEN, P Timed 07/23/2022 5:39 PM TUBER MACHINE OPERATOR HELPER CT HEAD WITHOUT IV CONTRAST RAD - Semiurgent (Fast; most ED patients; some inpatients) 07/23/2022 5:08 PM TUBER MACHINE OPERATOR HELPER CT CERVICAL SPINE WITHOUT IV CONTRAST RAD - Semiurgent (Fast; most ED patients; some inpatients) 07/23/2022 5:08 PM TUBER MACHINE OPERATOR HELPER CT ABDOMEN PELVIS WITH IV CONTRAST RAD - Semiurgent (Fast; most ED patients; some inpatients) 07/23/2022 5:07 PM TUBER MACHINE OPERATOR HELPER CT CHEST ANGIOGRAM AND PULMONARY ARTERIES WITH IV CONTRAST RAD - Semiurgent (Fast; most ED patients; some inpatients) 07/23/2022 4:59 PM TUBER MACHINE OPERATOR HELPER URINALYSIS WITH MICROSCOPIC STAT 07/23/2022 3:57 PM TUBER MACHINE OPERATOR HELPER ECG STAT 07/23/2022 3:55 PM TUBER MACHINE OPERATOR HELPER CONTINUOUS PULSE OXIMETRY STAT 07/23/2022 3:50 PM TUBER MACHINE OPERATOR HELPER CRITICAL CARE Routine 07/23/2022 3:42 PM TUBER MACHINE OPERATOR HELPER Rhabdomyolysis Failure Renal Acute (Acute Kidney Injury) (HCC) Delirium HC BLD GASES ANY COMBINATION Routine 07/23/2022 3:39 PM TUBER MACHINE OPERATOR HELPER LACTATE, POCT, B Routine 07/23/2022 3:39 PM TUBER MACHINE OPERATOR HELPER LACTATE, POCT, B STAT 07/23/2022 3:31 PM TUBER MACHINE OPERATOR HELPER BLOOD GAS, POCT, B STAT 07/23/2022 3:31 PM TUBER MACHINE OPERATOR HELPER CREATINE KINASE (CK), S STAT 07/23/2022 3:31 PM TUBER MACHINE OPERATOR HELPER COMPREHENSIVE METABOLIC PANEL, S/P STAT 07/23/2022 3:31 PM TUBER MACHINE OPERATOR HELPER CBC WITHOUT DIFFERENTIAL, B STAT 07/23/2022 3:31 PM TUBER MACHINE OPERATOR HELPER TROPONIN T, BASELINE, 5TH GEN, P STAT 07/23/2022 3:31 PM TUBER MACHINE OPERATOR HELPER D-DIMER, P STAT 07/23/2022 3:31 PM TUBER MACHINE OPERATOR HELPER PROSTATE-SPECIFIC AG (PSA) SCRN, S Routine 05/29/2022 10:30 AM TUBER MACHINE OPERATOR HELPER Benign Prostatic Hyperplasia Without Obstruction HEMOGLOBIN A1C, B Routine 05/14/2022 2:27 PM TUBER MACHINE OPERATOR HELPER 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) [place] CYSTOURETHROSCOPY Routine 05/14/2022 1:30 PM TUBER MACHINE OPERATOR HELPER Benign Prostatic Hyperplasia Without Obstruction Nocturia 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 Slowing Urinary Stream US KIDNEYS BILATERAL WITH BLADDER RAD - Routine (most inpatients and all outpatients) 03/28/2022 1:27 PM CDT Benign Prostatic Hyperplasia Without Obstruction Nocturia 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 BASIC METABOLIC PANEL, S/P Routine 03/28/2022 12:27 PM CDT Benign Prostatic Hyperplasia Without Obstruction Nocturia 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 WOUND OSTOMY IMAGE EXAM Routine 03/05/2022 11:25 AM CDT DX TOES LEFT 3 VIEWS RAD - Routine (most inpatients and all outpatients) 11/27/2021 11:35 AM CDT Injury Toenail Initial Left URINALYSIS WITH MICROSCOPIC Routine 11/13/2021 12:11 PM CDT Benign Prostatic Hyperplasia Without Obstruction ALBUMIN, RANDOM, U Routine 11/13/2021 12:11 PM CDT 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) LIPID PANEL, S Routine 11/13/2021 11:53 AM CDT Hyperlipidemia BASIC METABOLIC PANEL, S/P Routine 11/13/2021 11:53 AM CDT Hypertension Essential Primary HEMOGLOBIN A1C, B Routine 11/13/2021 11:53 AM CDT 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) HEMOGLOBIN A1C, B Routine 06/06/2021 11:54 AM TUBER MACHINE OPERATOR HELPER 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) DX FOOT RIGHT 3+ VIEWS RAD - Routine (most inpatients and all outpatients) 11/14/2020 11:02 AM CDT Pain Foot Right ALBUMIN, RANDOM, U Routine 11/12/2020 10:59 AM CDT 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) LIPID PANEL, S Routine 11/12/2020 10:55 AM CDT Hyperlipidemia ASPARTATE AMINOTRANSFERASE (AST), S/P Routine 11/12/2020 10:55 AM CDT Hyperlipidemia BASIC METABOLIC PANEL, S/P Routine 11/12/2020 10:55 AM CDT Hypertension Essential Primary HEMOGLOBIN A1C, B Routine 11/12/2020 10:55 AM CDT 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) HEMOGLOBIN A1C, B Routine 05/10/2020 10:10 AM TUBER MACHINE OPERATOR HELPER 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) ALBUMIN, RANDOM, U Routine 11/16/2019 12:54 PM CDT 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) FERRITIN, S Routine 11/16/2019 10:51 AM CDT Deficiency Iron LIPID PANEL, S Routine 11/16/2019 10:51 AM CDT Pure Hypercholesterolemia ASPARTATE AMINOTRANSFERASE (AST), S/P Routine 11/16/2019 10:51 AM CDT Pure Hypercholesterolemia BASIC METABOLIC PANEL, S/P Routine 11/16/2019 10:51 AM CDT Hypertension Essential Primary HEMOGLOBIN A1C, B Routine 11/16/2019 10:51 AM CDT 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) HEMOGLOBIN A1C, B Routine 05/02/2019 10:49 AM TUBER MACHINE OPERATOR HELPER 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) FOLATE, S Routine 05/02/2019 10:49 AM TUBER MACHINE OPERATOR HELPER Numbness Hand METHYLMALONIC ACID (MMA), DANIELA, S Routine 05/02/2019 10:49 AM TUBER MACHINE OPERATOR HELPER Numbness Hand THYROID-STIMULATING HORMONE-SENSITIVE (S-TSH) Routine 05/02/2019 10:49 AM TUBER MACHINE OPERATOR HELPER Numbness Hand ALBUMIN, RANDOM, U Routine 11/01/2018 11:31 AM CDT Diabetes Mellitus Type 2 (HCC) LIPID PANEL, S Routine 11/01/2018 11:27 AM CDT Pure Hypercholesterolemia BASIC METABOLIC PANEL, S/P Routine 11/01/2018 11:27 AM CDT 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) Hypertension Essential Primary ASPARTATE AMINOTRANSFERASE (AST), S/P Routine 11/01/2018 11:27 AM CDT Pure Hypercholesterolemia HEMOGLOBIN A1C, B Routine 11/01/2018 11:27 AM CDT 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) Diabetes Mellitus Type 2 (HCC) NM CARDIAC PERFUSION REST AND STRESS SPECT RAD - Routine (most inpatients and all outpatients) 08/10/2018 1:52 PM CDT Dyspnea On Exertion LIPID PANEL, S Routine 07/27/2018 BASIC METABOLIC PANEL, S/P Routine 07/27/2018 DX ABDOMEN 1 VIEW RAD - Routine (most inpatients and all outpatients) 07/20/2018 9:51 PM TUBER MACHINE OPERATOR HELPER THYROID-STIMULATING HORMONE-SENSITIVE (S-TSH) Routine 08/01/2017 LIPID PANEL, S Routine 08/01/2017 HEMOGLOBIN A1C, B Routine 06/25/2017 LIPID PANEL, S Routine 06/25/2017 BASIC METABOLIC PANEL, S/P Routine 06/25/2017 CBC WITH DIFFERENTIAL, B Routine 06/25/2017 DX FOOT LEFT 3+ VIEWS Routine 02/08/2017 12:49 PM CDT HEMOGLOBIN, B Routine 09/22/2016 10:20 AM CDT PROSTATE-SPECIFIC AG (PSA) SCRN, S Routine 09/22/2016 10:20 AM CDT BASIC METABOLIC PANEL, S/P Routine 09/22/2016 10:20 AM CDT IRON AND TOT IRON-BINDING CAPACITY, S/P Routine 09/22/2016 10:20 AM CDT FERRITIN, S Routine 09/22/2016 10:20 AM CDT HEMOGLOBIN A1C, B Routine 09/22/2016 10:20 AM CDT US ABDOMEN COMPLETE Routine 07/24/2016 11:21 AM TUBER MACHINE OPERATOR HELPER AUTOMATED DIFFERENTIAL, B Routine 07/24/2016 10:26 AM TUBER MACHINE OPERATOR HELPER CBC WITH DIFFERENTIAL, B Routine 07/24/2016 10:26 AM TUBER MACHINE OPERATOR HELPER LIPASE, S/P Routine 07/24/2016 10:26 AM TUBER MACHINE OPERATOR HELPER C-REACTIVE PROTEIN (CRP), S/P Routine 07/24/2016 10:26 AM TUBER MACHINE OPERATOR HELPER COMPREHENSIVE METABOLIC PANEL, S/P Routine 07/24/2016 10:26 AM TUBER MACHINE OPERATOR HELPER URINALYSIS, MIDSTREAM, WITH CULTURE IF INDICATED Routine 07/24/2016 10:00 AM TUBER MACHINE OPERATOR HELPER IRON AND TOT IRON-BINDING CAPACITY, S/P Routine 07/23/2016 12:00 PM TUBER MACHINE OPERATOR HELPER FERRITIN, S Routine 07/23/2016 12:00 PM TUBER MACHINE OPERATOR HELPER DX FOOT RIGHT 3+ VIEWS Routine 05/27/2016 2:29 PM TUBER MACHINE OPERATOR HELPER AUTOMATED DIFFERENTIAL, B Routine 05/27/2016 2:15 PM TUBER MACHINE OPERATOR HELPER CBC WITH DIFFERENTIAL, B Routine 05/27/2016 2:15 PM TUBER MACHINE OPERATOR HELPER SEDIMENTATION RATE, B Routine 05/27/2016 2:15 PM TUBER MACHINE OPERATOR HELPER URIC ACID, S/P Routine 05/27/2016 2:15 PM TUBER MACHINE OPERATOR HELPER LIPID PANEL, S Routine 05/27/2016 2:15 PM TUBER MACHINE OPERATOR HELPER HEMOGLOBIN A1C, B Routine 05/27/2016 2:15 PM TUBER MACHINE OPERATOR HELPER BASIC METABOLIC PANEL, S/P Routine 05/27/2016 2:15 PM TUBER MACHINE OPERATOR HELPER ALBUMIN, RANDOM, U Routine 05/27/2016 2:15 PM TUBER MACHINE OPERATOR HELPER DX ABDOMEN SUPINE WITH UPRIGHT OR DECUBITUS 2 VIEWS Routine 05/18/2016 10:24 PM TUBER MACHINE OPERATOR HELPER Results * (ABNORMAL) Urinalysis with Microscopic if Indicated (10/02/2022 8:29 PM CDT) Source Urine, Urine, Midstream 10/02/2022 8:31 PM CDT NPRG Clarity Cloudy(A) Clear 10/02/2022 8:34 PM CDT NPRG Color Yellow 10/02/2022 8:34 PM CDT NPRG Comment: ----REFERENCE VALUE---- Colorless Yellow [place] Blood Moderate(A) Negative 10/02/2022 8:34 PM CDT NPRG Nitrite Negative Negative 10/02/2022 8:34 PM CDT NPRG Leukocyte Esterase Large(A) Negative 10/02/2022 8:34 PM CDT NPRG Protein 100(A) mg/dL 10/02/2022 8:34 PM CDT NPRG Comment: ----REFERENCE VALUE---- Negative Trace Glucose Negative Negative mg/dL 10/02/2022 8:34 PM CDT NPRG Ketones, QI(U) Negative Negative mg/dL 10/02/2022 8:34 PM CDT NPRG Bilirubin Negative Negative 10/02/2022 8:34 PM CDT NPRG pH 7.0 5.0 - 8.0 10/02/2022 8:34 PM CDT NPRG Specific Imperial 1.015 1.001 - 1.035 10/02/2022 8:34 PM CDT NPRG Urobilinogen 1.0 0.2 - 1.0 mg/dL 10/02/2022 8:34 PM CDT NPRG Urine (Urine, Midstream) 10/02/2022 8:29 PM CDT 10/02/2022 8:31 PM CDT Erich Marti M.D. LAB URINE ORDERABLES Final R esult [facility] [address] [place] [address], [facility] NPRG [place] [address] [address] [place] [address] * (ABNORMAL) Microscopic Manual (10/02/2022 8:29 PM CDT) White Blood Cells >100(A) /hpf 10/02/2022 8:41 PM CDT NPRG Comment: ----REFERENCE VALUE---- Males: 0-3 Females: 0-10 Unknown: 0-10 Red Blood Cells None Seen 0 - 2 /hpf 10/02/2022 8:41 PM CDT NPRG Bacteria Present(A) None Seen 10/02/2022 8:41 PM CDT NPRG Urine 10/02/2022 8:29 PM CDT 10/02/2022 8:31 PM CDT us Soft Results Interface LAB URINE ORDERABLES Alanis l Result [facility] [address] [place] [address], [facility] [address] [place] [address] * DX Abdomen Supine and Upright 2 Views (10/02/2022 8:07 PM CDT) Anatomical Region Laterality Modality Abdomen, Abdominal RST LOS, Abdominal ARZ LOS, Abdominal FLA LOS Right Digital Radiography 10/02/2022 8:12 PM CDT Impressions 10/02/2022 8:13 PM CDT Constipation with findings suggesting developing fecal impaction. Narrative 10/02/2022 8:13 PM CDT EXAM: DX ABDOMEN SUPINE AND UPRIGHT 2 VIEWS COMPARISON: 07/20/2018 FINDINGS: There are postoperative changes in the upper abdomen. The bowel gas pattern is nonspecific, with a moderate amount of stool in the distal sigmoid colon/rectum, suggesting developing fecal impaction. There is moderate stool throughout the remainder of the colon. Procedure Note Ar Redman M.D. - 10/02/2022 EXAM: DX ABDOMEN SUPINE AND UPRIGHT 2 VIEWS COMPARISON: 07/20/2018 FINDINGS: There are postoperative changes in the upper abdomen. The bowelgas pattern is nonspecific, with a moderate amount of stool in the distal sigmoidcolon/rectum, suggesting developing fecal impaction. There is moderate stool throughout theremainder of the colon. IMPRESSION: Constipation with findings suggesting developing fecal impaction. Erich Marti M.D. IMG DIAGNOSTIC IMAGING [facility] Final Result * (ABNORMAL) Basic Metabolic Panel (09/23/2022 9:18 AM CDT) Only the most recent of10 resultswithin the time period is included. Potassium, P 4.1 3.6 - 5.2 mmol/L 09/23/2022 9:47 AM CDT NPRG Sodium, P 138 135 - 145 mmol/L 09/23/2022 9:47 AM CDT NPRG Chloride, P 100 98 - 107 mmol/L 09/23/2022 9:47 AM CDT NPRG Bicarbonate, P 28 22 - 29 mmol/L 09/23/2022 9:47 AM CDT NPRG Anion Gap, P 10 7 - 15 09/23/2022 9:47 AM CDT NPRG BUN (Blood Urea Nitrogen), P 17 8 - 24 mg/dL 09/23/2022 9:47 AM CDT NPRG Creatinine 0.98 0.74 - 1.35 mg/dL 09/23/2022 9:47 AM CDT NPRG Estimated GFR (eGFR) 76 >=60 mL/min/BSA 09/23/2022 9:47 AM CDT NPRG Comment: Estimated GFR calculated using the 2020 CKD_EPI creatinine equation. Calcium, Total, P 9.6 8.8 - 10.2 mg/dL 09/23/2022 9:47 AM CDT NPRG Glucose, P 227(H) 70 - 140 mg/dL 09/23/2022 9:47 AM CDT NPRG Blood (Blood, Venous) 09/23/2022 9:18 AM CDT 09/23/2022 9:20 AM CDT us Estiven Merrill M.D. LAB BLOOD ADD-ON Final Result [facility] [address] [place] [address], [facility] NPRG [facility] [address] [place] [address] * DX Chest Portable 1 View (07/23/2022 11:07 PM TUBER MACHINE OPERATOR HELPER) Anatomical Region Laterality Modality Chest, Thoracic RST LOS, Tho racic ARZ LOS, Thoracic FLA LOS N/A Digital Radiography 07/23/2022 11:1 6 PM TUBER MACHINE OPERATOR HELPER Impressions 07/23/2022 11:17 PM TUBER MACHINE OPERATOR HELPER Right IJ approach central venous catheter tip projects over the downstream superior vena cava. No pneumothorax. No focal consolidation. No sizable pleural effusion. Cardiomediastinal silhouette is within normal limits in size, notable for dense atherosclerotic calcification of the aortic arch. Narrative 07/23/2022 11:17 PM TUBER MACHINE OPERATOR HELPER EXAM: DX CHEST PORTABLE 1 VIEW Procedure Note Jessie Mccray M.D. - 07/23/2022 EXAM: DX CHEST PORTABLE 1 VIEW IMPRESSION: Right IJ approach central venous catheter tip projects over the downstreamsuperior vena cava. No pneumothorax. No focal consolidation. No sizable pleuraleffusion. Cardiomediastinal silhouette is within normal limits in size, notable for denseatherosclerotic calcification of the aortic arch. August Morrell M.D. [facility] DIAGNOSTIC IMAGING PROC EDURES Final Result * Non-Radiology Image-Emergency Department Image Exam (07/23/2022 10:30 PM TUBER MACHINE OPERATOR HELPER) 07/23/2022 10:2 9 PM TUBER MACHINE OPERATOR HELPER Narrative IIMS - 07/23/2022 11:39 PM TUBER MACHINE OPERATOR HELPER This order has been created and auto-finalized to support the import of images acquired without order. The clinical documentation to support these images can be found on the encounter that produced images. us Provider Not In System IMG NON RAD IMAGING PROCE DURES Final Result Performing Organization Address [facility] Co de Phone Number IIDE NA * Bacteria / Pastora Culture, Blood #2 (07/23/2022 9:57 PM TUBER MACHINE OPERATOR HELPER) Only the most recent of2 resultswithin the time period is included. Bacteria/Radha da Culture, Blood No growth after 5 day/s of incubation. 07/28/2022 10:03 PM TUBER MACHINE OPERATOR HELPER NPRG Blood (Blood, Peripheral Draw) 07/23/2022 9:57 PM TUBER MACHINE OPERATOR HELPER 07/23/2022 10:02 PM TUBER MACHINE OPERATOR HELPER Comment:Specimen Source Site : Blood August Morrell M.D. LAB MICROBIOLOGY - GENERAL ORDERABLES Final Result [facility] [address] [place] [address], [facility] NPRG [place] [address] [address] [place] [address] * Lactate, baseline (07/23/2022 9:57 PM TUBER MACHINE OPERATOR HELPER) Lactate, P 2.0 0.5 - 2.2 mmol/L 07/23/2022 10:17 PM TUBER MACHINE OPERATOR HELPER NPRG Blood (Blood, Venous) 07/23/2022 9:57 PM TUBER MACHINE OPERATOR HELPER 07/23/2022 10:02 PM TUBER MACHINE OPERATOR HELPER us August Morrell M.D. LAB BLOOD NON ADD-ON Final Result Performing Organization Address [facility] Co de Phone Number [facility] [address] [place] [address], [facility] NPRG [address] [place] [address] [address] [place] [address] * Knee-Family Medicine Image Exam (07/23/2022 8:09 PM TUBER MACHINE OPERATOR HELPER) 07/23/2022 8:07 PM TUBER MACHINE OPERATOR HELPER Narrative IIMS - 07/23/2022 8:09 PM TUBER MACHINE OPERATOR HELPER This order has been created and auto-finalized to support the import of images acquired without order. The clinical documentation to support these images can be found on the encounter that produced images. us Provider Not In System IMG NON RAD IMAGING PROCE DURES Final Result Performing Organization Address [facility] Co de Phone Number IIMS NA * (ABNORMAL) Troponin T, 2H/6H, 5th Gen (07/23/2022 5:39 PM TUBER MACHINE OPERATOR HELPER) Troponin T, 2 hr, 5th gen 41(H) <=15 ng/L 07/23/2022 6:10 PM TUBER MACHINE OPERATOR HELPER NPRG 2H Delta -4 ng/L 07/23/2022 6:10 PM TUBER MACHINE OPERATOR HELPER NPRG 2H Delta Interp Indeterminate 07/23/2022 6:10 PM TUBER MACHINE OPERATOR HELPER NPRG Comment:Indeterminate delta, additional sample suggested Troponin T, 6 hr, 5th gen 49(H) <=15 ng/L 07/23/2022 10:23 PM TUBER MACHINE OPERATOR HELPER NPRG 6H Delta 4 ng/L 07/23/2022 10:23 PM TUBER MACHINE OPERATOR HELPER NPRG 6H Delta Interp Not Changing 07/23/2022 10:23 PM TUBER MACHINE OPERATOR HELPER NPRG Blood (Blood, Venous) 07/23/2022 5:39 PM TUBER MACHINE OPERATOR HELPER 07/23/2022 5:50 PM TUBER MACHINE OPERATOR HELPER Narrative [facility] - 07/23/2022 10:23 PM TUBER MACHINE OPERATOR HELPER Specimen Information: Specimen ID: [id number] Specimen Type: Blood Specimen Collection Start Date: 07/23/2022 5:39 PM Specimen Received Date: 07/23/2022 5:50 PM Specimen ID: [id number] Specimen Type: Blood Specimen Collection Start Date: 07/23/2022 9:36 PM Specimen Received Date: 07/23/2022 10:02 PM Erich Marti M.D. LAB BLOOD TROPONIN Final Res ult [facility] [address] [place] [address], [facility] NPRG [facility] [address] [place] [address] * CT Head without IV Contrast (07/23/2022 5:08 PM TUBER MACHINE OPERATOR HELPER) Anatomical Region Laterality Modality Head, Neuroradiology RST LOS , Neuroradiology ARZ LOS, Neuroradiology FLA LOS N/A Computed Tomography 07/23/2022 5:01 PM TUBER MACHINE OPERATOR HELPER Impressions 07/23/2022 5:16 PM TUBER MACHINE OPERATOR HELPER 1. No acute intracranial hemorrhage or calvarial fracture. 2. 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 Narrative 07/23/2022 5:16 PM TUBER MACHINE OPERATOR HELPER EXAM: CT HEAD WITHOUT IV CONTRAST COMPARISON: None FINDINGS: No acute intracranial hemorrhage or extra-axial collection. Subtle hypoattenuating areas in the cerebral white matter likely represent chronic microvascular ischemic changes. The mauricio-white matter interface is preserved. Intracranial internal carotid and vertebrobasilar artery atheromatous calcifications. Ventricular size is proportional to degree of age-appropriate generalized brain parenchymal volume loss. No midline shift or sulcal effacement. The basilar cisterns are patent. Ocular implants. Mild paranasal sinus mucosal thickening, without air-fluid levels. The mastoid air cells are clear. No calvarial fracture. Procedure Note Tomás Loving M.D. - 07/23/2022 EXAM: CT HEAD WITHOUT IV CONTRAST COMPARISON: None FINDINGS: No acute intracranial hemorrhage or extra-axial collection. Subtle hypoattenuating areas in the cerebral white matter likely representchronic microvascular ischemic changes. The mauricio-white matter interface is preserved.Intracranial internal carotid and vertebrobasilar artery atheromatous calcifications. Ventricular size is proportional to degree of age-appropriate generalizedbrain parenchymal volume loss. No midline shift or sulcal effacement. The basilar cisterns arepatent. Ocular implants. Mild paranasal sinus mucosal thickening, withoutair-fluid levels. The mastoid air cells are clear. No calvarial fracture. IMPRESSION: 1. No acute intracranial hemorrhage or calvarial fracture. 2. Chronic microvascular ischemic changes and intracranialatherosclerosis. us Erich Marti M.D. IMG CT PROCEDURES Final Resu lt * CT Cervical Spine without IV Contrast (07/23/2022 5:08 PM TUBER MACHINE OPERATOR HELPER) Anatomical Region Laterality Modality Cervical Spine, Neuroradiolo gy RST [facility], Neuroradiology [facility], [facility] Computed Tomography 07/23/2022 5:00 PM TUBER MACHINE OPERATOR HELPER Impressions 07/23/2022 5:30 PM TUBER MACHINE OPERATOR HELPER 1. No evidence of fracture. 2. Moderate degenerative disc disease. 3. Carotid vascular calcifications. Correlation with physical examination and/or ultrasound is suggested. Narrative 07/23/2022 5:30 PM TUBER MACHINE OPERATOR HELPER EXAM: CT CERVICAL SPINE WITHOUT IV CONTRAST COMPARISON: None FINDINGS: There is no evidence of fracture nor dislocation. Degenerative change at the odontoid process. Loss of intervertebral disc height from C3-4 C6-7 with osteophytosis can be seen. Vertebral body height and alignment are otherwise well-maintained. Minimal degenerative facet changes are present. Note is made of vascular calcifications carotid bifurcations. Procedure Note Donovan Keller M.D. - 07/23/2022 EXAM: CT CERVICAL SPINE WITHOUT IV CONTRAST COMPARISON: None FINDINGS: There is no evidence of fracture nor dislocation. Degenerative change at the odontoid process. Loss of intervertebral discheight from C3-4 C6-7 with osteophytosis can be seen. Vertebral body height and alignment areotherwise well-maintained. Minimal degenerative facet changes are present. Note is made of vascular calcifications carotid bifurcations. IMPRESSION: 1. No evidence of fracture. 2. Moderate degenerative disc disease. 3. Carotid vascular calcifications. Correlation with physical examinationand/or ultrasound is suggested. Erich RAGLAND CT PROCEDURES Final Resu lt * CT Abdomen Pelvis with IV Contrast (07/23/2022 5:07 PM TUBER MACHINE OPERATOR HELPER) Anatomical Region Laterality Modality Abdomen, Pelvis, Abdominal R ST LOS, Abdominal ARZ LOS, Abdominal FLA LOS N/A Computed Tomography 07/23/2022 5:02 PM TUBER MACHINE OPERATOR HELPER Impressions 07/23/2022 5:22 PM TUBER MACHINE OPERATOR HELPER 1. Negative for acute pulmonary embolism. 2. Negative for thoracic aortic aneurysm. 3. No pneumothorax. 4. No acute airspace disease. 5. No acute displaced rib fracture. Thoracolumbar spine intact. 6. No abdominal or pelvic adenopathy. Narrative 07/23/2022 5:22 PM TUBER MACHINE OPERATOR HELPER EXAM: CT CHEST ANGIOGRAM AND PULMONARY ARTERIES WITH IV CONTRAST, CT ABDOMEN PELVIS WITH IV CONTRAST Including 3D image post-processing COMPARISON: None. FINDINGS: Chest CT: There is no central or peripheral pulmonary artery filling defect observed. There is no thoracic aortic aneurysm. There is no chest lymphadenopathy. The heart size and the pulmonary vascularity are within normal limits. There is no pericardial fluid. Lungs: There is no pneumothorax. No acute airspace opacity is observed. Mild subsegmental atelectasis in the bilateral bases. Abdomen/pelvis CT: Liver: No focal lesion identified. Normal enhancement. Gallbladder and Biliary Tree: Postsurgical changes of a cholecystectomy. No intra or extrahepatic biliary ductal dilatation is observed. Spleen: No focal lesion is identified. No evidence of splenomegaly. Pancreas: Normal enhancement. No focal lesion or ductal dilatation. Adrenal glands: No focal lesion identified. Kidneys, ureters, and bladder: Postoperative changes of a left nephrectomy. Tiny subcentimeter simple cysts in the right kidney. No suspicious renal masses. No renal, ureteral, or urinary bladder stones, no hydroureteronephrosis bilaterally. GI tract: Distal colonic diverticula are observed without pericolonic fat stranding. No small bowel or colon obstruction or pneumatosis. No free intraperitoneal air, free fluid, fluid collection, or abscess. No abdominal or pelvic adenopathy. Bones: No acute displaced rib fracture. Thoracolumbar spine intact. 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 No lytic or blastic bone lesions are identified. Procedure Note Jason Olea M.D. - 07/23/2022 EXAM: CT CHEST ANGIOGRAM AND PULMONARY ARTERIES WITH IV CONTRAST, CTABDOMEN PELVIS WITH IV CONTRAST Including 3D image post-processing COMPARISON: None. FINDINGS: Chest CT: There is no central or peripheral pulmonary artery fillingdefect observed. There is no thoracic aortic aneurysm. There is no chest lymphadenopathy. The heartsize and the pulmonary vascularity are within normal limits. There is no pericardial fluid. Lungs: There is no pneumothorax. No acute airspace opacity is observed.Mild subsegmental atelectasis in the bilateral bases. Abdomen/pelvis CT: Liver: No focal lesion identified. Normal enhancement. Gallbladder and Biliary Tree: Postsurgical changes of a cholecystectomy.No intra or extrahepatic biliary ductal dilatation is observed. Spleen: No focal lesion is identified. No evidence of splenomegaly. Pancreas: Normal enhancement. No focal lesion or ductal dilatation. Adrenal glands: No focal lesion identified. Kidneys, ureters, and bladder: Postoperative changes of a leftnephrectomy. Tiny subcentimeter simple cysts in the right kidney. No suspicious renal masses. No renal,ureteral, or urinary bladder stones, no hydroureteronephrosis bilaterally. GI tract: Distal colonic diverticula are observed without pericolonic fatstranding. No small bowel or colon obstruction or pneumatosis. No free intraperitoneal air, free fluid, fluid collection, or abscess. Noabdominal or pelvic adenopathy. Bones: No acute displaced rib fracture. 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 No lytic orblastic bone lesions are identified. IMPRESSION: 1. Negative for acute pulmonary embolism. 2. Negative for thoracic aortic aneurysm. 3. No pneumothorax. 4. No acute airspace disease. 5. No acute displaced rib fracture. Thoracolumbar spine intact. 6. No abdominal or pelvic adenopathy. Erich Marti M.D. IMImelda CT PROCEDURES Final Resu lt * CT Chest Angiogram and Pulmonary Arteries with IV Contrast (07/23/2022 4:59 PM TUBER MACHINE OPERATOR HELPER) Anatomical Region Laterality Modality Chest, Cardiovascular RST LO S, Thoracic ARZ LOS, Thoracic FLA LOS N/A Computed Tomography 07/23/2022 5:06 PM TUBER MACHINE OPERATOR HELPER Impressions 07/23/2022 5:22 PM TUBER MACHINE OPERATOR HELPER 1. Negative for acute pulmonary embolism. 2. Negative for thoracic aortic aneurysm. 3. No pneumothorax. 4. No acute airspace disease. 5. No acute displaced rib fracture. Thoracolumbar spine intact. 6. No abdominal or pelvic adenopathy. Narrative 07/23/2022 5:22 PM TUBER MACHINE OPERATOR HELPER EXAM: CT CHEST ANGIOGRAM AND PULMONARY ARTERIES WITH IV CONTRAST, CT ABDOMEN PELVIS WITH IV CONTRAST Including 3D image post-processing COMPARISON: None. FINDINGS: Chest CT: There is no central or peripheral pulmonary artery filling defect observed. There is no thoracic aortic aneurysm. There is no chest lymphadenopathy. The heart size and the pulmonary vascularity are within normal limits. There is no pericardial fluid. Lungs: There is no pneumothorax. No acute airspace opacity is observed. Mild subsegmental atelectasis in the bilateral bases. Abdomen/pelvis CT: Liver: No focal lesion identified. Normal enhancement. Gallbladder and Biliary Tree: Postsurgical changes of a cholecystectomy. No intra or extrahepatic biliary ductal dilatation is observed. Spleen: No focal lesion is identified. No evidence of splenomegaly. Pancreas: Normal enhancement. No focal lesion or ductal dilatation. Adrenal glands: No focal lesion identified. Kidneys, ureters, and bladder: Postoperative changes of a left nephrectomy. Tiny subcentimeter simple cysts in the right kidney. No suspicious renal masses. No renal, ureteral, or urinary bladder stones, no hydroureteronephrosis bilaterally. GI tract: Distal colonic diverticula are observed without pericolonic fat stranding. No small bowel or colon obstruction or pneumatosis. No free intraperitoneal air, free fluid, fluid collection, or abscess. No abdominal or pelvic adenopathy. Bones: No acute displaced rib fracture. Thoracolumbar spine intact. 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 No lytic or blastic bone lesions are identified. Procedure Note Jason Olea M.D. - 07/23/2022 EXAM: CT CHEST ANGIOGRAM AND PULMONARY ARTERIES WITH IV CONTRAST, CTABDOMEN PELVIS WITH IV CONTRAST Including 3D image post-processing COMPARISON: None. FINDINGS: Chest CT: There is no central or peripheral pulmonary artery fillingdefect observed. There is no thoracic aortic aneurysm. There is no chest lymphadenopathy. The heartsize and the pulmonary vascularity are within normal limits. There is no pericardial fluid. Lungs: There is no pneumothorax. No acute airspace opacity is observed.Mild subsegmental atelectasis in the bilateral bases. Abdomen/pelvis CT: Liver: No focal lesion identified. Normal enhancement. Gallbladder and Biliary Tree: Postsurgical changes of a cholecystectomy.No intra or extrahepatic biliary ductal dilatation is observed. Spleen: No focal lesion is identified. No evidence of splenomegaly. Pancreas: Normal enhancement. No focal lesion or ductal dilatation. Adrenal glands: No focal lesion identified. Kidneys, ureters, and bladder: Postoperative changes of a leftnephrectomy. Tiny subcentimeter simple cysts in the right kidney. No suspicious renal masses. No renal,ureteral, or urinary bladder stones, no hydroureteronephrosis bilaterally. GI tract: Distal colonic diverticula are observed without pericolonic fatstranding. No small bowel or colon obstruction or pneumatosis. No free intraperitoneal air, free fluid, fluid collection, or abscess. Noabdominal or pelvic adenopathy. Bones: No acute displaced rib fracture. 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 No lytic orblastic bone lesions are identified. IMPRESSION: 1. Negative for acute pulmonary embolism. 2. Negative for thoracic aortic aneurysm. 3. No pneumothorax. 4. No acute airspace disease. 5. No acute displaced rib fracture. Thoracolumbar spine intact. 6. No abdominal or pelvic adenopathy. Erich Marti M.D. IMG CT PROCEDURES Final Resu lt * (ABNORMAL) Urinalysis with Microscopic: Urine, Straight Catheter (07/23/2022 3:57 PM TUBER MACHINE OPERATOR HELPER) Only the most recent of2 resultswithin the time period is included. Source Urine, Urine, Straight Catheter 07/23/2022 4:03 PM TUBER MACHINE OPERATOR HELPER NPRG Clarity Clear Clear 07/23/2022 4:06 PM TUBER MACHINE OPERATOR HELPER NPRG Color [place] 07/23/2022 4:06 PM TUBER MACHINE OPERATOR HELPER NPRG Comment: ----REFERENCE VALUE---- Colorless Yellow Elizabeth Blood Large(A) Negative 07/23/2022 4:06 PM TUBER MACHINE OPERATOR HELPER NPRG Nitrite Negative Negative 07/23/2022 4:06 PM TUBER MACHINE OPERATOR HELPER NPRG Leukocyte Esterase Negative Negative 07/23/2022 4:06 PM TUBER MACHINE OPERATOR HELPER NPRG Protein >=300(A) mg/dL 07/23/2022 4:06 PM TUBER MACHINE OPERATOR HELPER NPRG Comment: ----REFERENCE VALUE---- Negative Trace Glucose Negative Negative mg/dL 07/23/2022 4:06 PM TUBER MACHINE OPERATOR HELPER NPRG Ketones, QI(U) 15(A) Negative mg/dL 07/23/2022 4:06 PM TUBER MACHINE OPERATOR HELPER NPRG Bilirubin Moderate(A) Negative 07/23/2022 4:06 PM TUBER MACHINE OPERATOR HELPER NPRG pH 5.5 5.0 - 8.0 07/23/2022 4:06 PM TUBER MACHINE OPERATOR HELPER NPRG Specific Imperial >=1.030 1.001 - 1.035 07/23/2022 4:06 PM TUBER MACHINE OPERATOR HELPER NPRG Urobilinogen 1.0 0.2 - 1.0 mg/dL 07/23/2022 4:06 PM TUBER MACHINE OPERATOR HELPER NPRG White Blood Cells 11-20(A) /hpf 07/23/2022 4:15 PM TUBER MACHINE OPERATOR HELPER NPRG Comment: ----REFERENCE VALUE---- Males: 0-3 Females: 0-10 Unknown: 0-10 Red Blood Cells None Seen 0 - 2 /hpf 4:15 PM TUBER MACHINE OPERATOR HELPER NPRG Granular Casts 11-20(A) None Seen /lpf 07/23/2022 4:15 PM TUBER MACHINE OPERATOR HELPER NPRG Squamous Cells Occ-3 /hpf 07/23/2022 4:15 PM TUBER MACHINE OPERATOR HELPER NPRG Bacteria Present(A) None Seen 07/23/2022 4:15 PM TUBER MACHINE OPERATOR HELPER NPRG Urine (Urine, Straight Catheter) 07/23/2022 3:57 PM TUBER MACHINE OPERATOR HELPER 07/23/2022 4:03 PM TUBER MACHINE OPERATOR HELPER us Erich Marti M.D. LAB URINE ORDERABLES Final R esult Performing Organization Address City/[facility] Co de Phone Number [facility] [address] [place] [address], [facility] NPRG [facility] [address] [place] [address] * ECG 12 Lead (07/23/2022 3:55 PM TUBER MACHINE OPERATOR HELPER) Ventricular Rate ECG/Min 98 BPM MUSE QRSD Interval 72 ms MUSE QT Interval 348 ms MUSE QTC Interval 444 ms MUSE R [place] -9 degrees MUSE T Wave [place] 33 degrees MUSE 07/23/2022 3:55 PM TUBER MACHINE OPERATOR HELPER 07/23/2022 4:08 PM TUBER MACHINE OPERATOR HELPER Impressions MUSE - 07/23/2022 4:08 PM TUBER MACHINE OPERATOR HELPER Poor data quality Sinus rhythm Premature ventricular complexes Premature atrial complexes Cannot rule out Inferior infarct Nonspecific ST and T wave abnormality No previous ECGs available Reviewed by Jason Bird III, CRAT Narrative Procedure Note Jerry Weiner Jr., M.D. - 07/23/2022 IMPRESSION: Poor data quality Sinus rhythm Premature ventricular complexes Premature atrial complexes Cannot rule out Inferior infarct Nonspecific ST and T wave abnormality No previous ECGs available Reviewed by Jason Bird III, CRAT us Erich Marti M.D. ECG ORDERABLES Final Result Performing Organization Address City/[facility]/ZIP Co de Phone Number MUSE NA * Critical Care (07/23/2022 3:42 PM TUBER MACHINE OPERATOR HELPER) Narrative Erich Marti M.D. - 07/23/2022 3:42 PM TUBER MACHINE OPERATOR HELPER Erich Marti M.D. 07/23/2022 8:40 PM Critical Care Performed by: Erich Marti M.D. Authorized by: Erich Marti M.D. Critical care provider statement: Critical care total time (minutes): 45 Critical care time was exclusive of: separately billable procedures and treating other patients Critical care was necessary to treat or prevent imminent or life-threatening deterioration of the following conditions: renal failure, respiratory failure, metabolic crisis and dehydration Critical care was time spent personally by me on the following activities: development of treatment plan with patient or surrogate, discussing treatment issues with family or surrogate, discussions with consultants, documenting in the patient chart, evaluation of patient's response to treatment, examination of patient, ordering and performing treatments and interventions, ordering and review of laboratory studies, ordering and review of radiographic studies, re-evaluation of patient's condition and review of old charts Erich Marti M.D. PROCEDURE/MINOR SURGICAL ORD ERABLES Final Result * (ABNORMAL) Lactate, POCT (07/23/2022 3:39 PM TUBER MACHINE OPERATOR HELPER) Only the most recent of2 resultswithin the time period is included. Lactate, POCT 3.87(H) 0.50 - 2.20 mmol/L 07/23/2022 3:39 PM TUBER MACHINE OPERATOR HELPER NPRG Blood 07/23/2022 3:39 PM TUBER MACHINE OPERATOR HELPER 07/23/2022 3:41 PM TUBER MACHINE OPERATOR HELPER Generic Rals LAB POCT ORDERABLES - DEVICE Fin al Result [facility] [address] [place] [address], [facility] NPRG [facility] [address] [place] [address] * (ABNORMAL) VBG (Venous Blood Gas), POCT (07/23/2022 3:39 PM TUBER MACHINE OPERATOR HELPER) pH, Venous, POCT, B 7.29(L) 7.32 - 7.43 07/23/2022 3:39 PM TUBER MACHINE OPERATOR HELPER NPRG pCO2, Venous, POCT, B 34(L) 41 - 51 mm Hg 07/23/2022 3:39 PM TUBER MACHINE OPERATOR HELPER NPRG pO2, Venous, POCT, B 32 Not applicable mm Hg 07/23/2022 3:39 PM TUBER MACHINE OPERATOR HELPER NPRG HCO3, Venous, POCT, B 16 Not applicable mmol/L 07/23/2022 3:39 PM TUBER MACHINE OPERATOR HELPER NPRG Base Excess, Venous, POCT, B -10 Not applicable mmol/L 07/23/2022 3:39 PM TUBER MACHINE OPERATOR HELPER NPRG O2 Saturation, Venous, POCT, B 55 Not applicable % 07/23/2022 3:39 PM TUBER MACHINE OPERATOR HELPER NPRG Sample Type, Blood Gas, POCT KENTRELL 07/23/2022 3:39 PM TUBER MACHINE OPERATOR HELPER NPRG Blood 07/23/2022 3:39 PM TUBER MACHINE OPERATOR HELPER 07/23/2022 3:41 PM TUBER MACHINE OPERATOR HELPER us Generic Rals LAB POCT ORDERABLES - DEVICE Fin al Result Performing Organization Address [facility]/ZIP Co de Phone Number [facility] [address] [place] [address], [place] NPRG [place] [address] [place] [address] * (ABNORMAL) Troponin T, Baseline, 5th gen (07/23/2022 3:31 PM TUBER MACHINE OPERATOR HELPER) Troponin T, Baseline, 5th gen 45(H) <=15 ng/L 07/23/2022 4:23 PM TUBER MACHINE OPERATOR HELPER NPRG Blood (Blood, Venous) 07/23/2022 3:31 PM TUBER MACHINE OPERATOR HELPER 07/23/2022 3:52 PM TUBER MACHINE OPERATOR HELPER us Erich Marti M.D. LAB BLOOD TROPONIN Final Res ult [facility] [address] [place] [address], [place] NPRG [address] [address] * Venous Blood Gas, POCT (07/23/2022 3:31 PM TUBER MACHINE OPERATOR HELPER) Blood Gas, POCT, B Collected DEFAULT 07/23/2022 3:34 PM TUBER MACHINE OPERATOR HELPER NPRG Blood (Blood, Venous) 07/23/2022 3:31 PM TUBER MACHINE OPERATOR HELPER 07/23/2022 3:34 PM TUBER MACHINE OPERATOR HELPER us Erich Marti M.D. LAB POCT ORDERABLES - DEVICE Final Result Performing Organization Address [facility] Co de Phone Number [facility] [address] [place] [address], [facility] NPRG [place] [address] [place] [address] * (ABNORMAL) D-Dimer (07/23/2022 3:31 PM TUBER MACHINE OPERATOR HELPER) Pathologist [facility] D-Dimer, P 1160(H) <=500 ng/mL FEU 07/23/2022 3:45 PM TUBER MACHINE OPERATOR HELPER NPRG Comment: D-dimer concentrations increase with age. For DVT/PE exclusion, in addition to clinical pre-test probability, age-adjusted D-dimer cut-offs are suggested for patients >50 years old. For additional information refer to the D-dimer assay in the Laboratory Test Catalog (LTC) and/or [employer] (KASSIDY). ----ADDITIONAL INFORMATION---- D-dimer values less than or equal to 500 ng/mL fibrinogen equivalent units (FEU) may be used in conjunction with clinical pre-test probability to exclude deep vein thrombosis (DVT) and/or pulmonary embolism (PE). Blood (Blood, Venous) 07/23/2022 3:31 PM TUBER MACHINE OPERATOR HELPER 07/23/2022 3:34 PM TUBER MACHINE OPERATOR HELPER us Erich Marti M.D. LAB BLOOD ADD-ON Final Resul t Performing Organization Address City/[facility]/ZIP Co de Phone Number [facility] [address] [place] [address], [place] NPRG [place] [address] [place] [address] * (ABNORMAL) CBC without Differential (07/23/2022 3:31 PM TUBER MACHINE OPERATOR HELPER) Hemoglobin 17.1(H) 13.2 - 16.6 g/dL 07/23/2022 4:00 PM TUBER MACHINE OPERATOR HELPER NPRG Hematocrit 51.6(H) 38.3 - 48.6 % 07/23/2022 4:00 PM TUBER MACHINE OPERATOR HELPER NPRG Erythrocytes 5.92(H) 4.35 - 5.65 x10(12)/L 07/23/2022 4:00 PM TUBER MACHINE OPERATOR HELPER NPRG MCV 87.2 78.2 - 97.9 fL 07/23/2022 4:00 PM TUBER MACHINE OPERATOR HELPER NPRG RBC Distrib Width 14.5 11.8 - 14.5 % 07/23/2022 4:00 PM TUBER MACHINE OPERATOR HELPER NPRG Platelet Count 220 135 - 317 x10(9)/L 07/23/2022 4:00 PM TUBER MACHINE OPERATOR HELPER NPRG Leukocytes 12.9(H) 3.4 - 9.6 x10(9)/L 07/23/2022 4:00 PM TUBER MACHINE OPERATOR HELPER NPRG Blood (Blood, Venous) 07/23/2022 3:31 PM TUBER MACHINE OPERATOR HELPER 07/23/2022 3:51 PM TUBER MACHINE OPERATOR HELPER us Erich Marti M.D. LAB BLOOD ADD-ON Final Resul t Performing Organization Address City/[facility]/ZIP Co de Phone Number [facility] [address] [place] [address], [facility] NPRG [place] [address] [place] [address] * (ABNORMAL) CK (Creatine Kinase) (07/23/2022 3:31 PM TUBER MACHINE OPERATOR HELPER) Creatine Kinase, P 25735(CH) 39 - 308 U/L 07/23/2022 4:51 PM TUBER MACHINE OPERATOR HELPER NPRG Blood (Blood, Venous) 07/23/2022 3:31 PM TUBER MACHINE OPERATOR HELPER 07/23/2022 3:51 PM TUBER MACHINE OPERATOR HELPER us Erich Marti M.D. LAB BLOOD ADD-ON Final Resul t Performing Organization Address City/[facility]/ZIP Co de Phone Number [facility] [address] [place] [address], [facility] [place] [address] [address] [place] [address] * (ABNORMAL) Comprehensive Metabolic Panel (07/23/2022 3:31 PM TUBER MACHINE OPERATOR HELPER) Only the most recent of2 resultswithin the time period is included. Potassium, P 3.6 3.6 - 5.2 mmol/L 07/23/2022 4:07 PM TUBER MACHINE OPERATOR HELPER NPRG Sodium, P 148(H) 135 - 145 mmol/L 07/23/2022 4:07 PM TUBER MACHINE OPERATOR HELPER NPRG Chloride, P 106 98 - 107 mmol/L 07/23/2022 4:07 PM TUBER MACHINE OPERATOR HELPER NPRG Bicarbonate, P 16(L) 22 - 29 mmol/L 07/23/2022 4:07 PM TUBER MACHINE OPERATOR HELPER NPRG Anion Gap, P 26(H) 7 - 15 07/23/2022 4:07 PM TUBER MACHINE OPERATOR HELPER NPRG BUN (Blood Urea Nitrogen), P 60(H) 8 - 24 mg/dL 07/23/2022 4:07 PM TUBER MACHINE OPERATOR HELPER NPRG Creatinine 1.48(H) 0.74 - 1.35 mg/dL 07/23/2022 4:07 PM TUBER MACHINE OPERATOR HELPER NPRG Estimated GFR (eGFR) 46(L) >=60 mL/min/BS A 07/23/2022 4:07 PM TUBER MACHINE OPERATOR HELPER NPRG Comment: Estimated GFR calculated using the 2020 CKD_EPI creatinine equation. Calcium, Total, P 9.4 8.8 - 10.2 mg/dL 07/23/2022 4:07 PM TUBER MACHINE OPERATOR HELPER NPRG Glucose, P 220(H) 70 - 140 mg/dL 07/23/2022 4:07 PM TUBER MACHINE OPERATOR HELPER NPRG Protein, Total, P 7.9 6.3 - 7.9 g/dL 07/23/2022 4:07 PM TUBER MACHINE OPERATOR HELPER NPRG Albumin, P 3.9 3.5 - 5.0 g/dL 07/23/2022 4:07 PM TUBER MACHINE OPERATOR HELPER NPRG Aspartate Aminotransferase (AST), P 469(H) 8 - 48 U/L 07/23/2022 4:07 PM TUBER MACHINE OPERATOR HELPER NPRG Alkaline Phosphatase, P 102 40 - 129 U/L 07/23/2022 4:07 PM TUBER MACHINE OPERATOR HELPER NPRG Alanine Aminotransferase (ALT), P 242(H) 7 - 55 U/L 07/23/2022 4:07 PM TUBER MACHINE OPERATOR HELPER NPRG Bilirubin, Total, P 0.8 <=1.2 mg/dL 07/23/2022 4:07 PM TUBER MACHINE OPERATOR HELPER NPRG Blood (Blood, Venous) 07/23/2022 3:31 PM TUBER MACHINE OPERATOR HELPER 07/23/2022 3:51 PM TUBER MACHINE OPERATOR HELPER us Erich Marti M.D. LAB BLOOD ADD-ON Final Resul t Performing Organization Address City/[facility]/ZIP Co de Phone Number [facility] [address] [place] [address], [facility] NPRG [place] [address] [place] [address] * PSA (Prostate-Specific Antigen) Screen (05/29/2022 10:30 AM TUBER MACHINE OPERATOR HELPER) Only the most recent of2 resultswithin the time period is included. Prostate-Specific Ag <0.10 <=7.2 ng/mL 05/29/2022 12:56 PM TUBER MACHINE OPERATOR HELPER NPR Comment: ----ADDITIONAL INFORMATION---- The testing method is an electrochemiluminescence assay manufactured by [employer] and performed on the Modular or Amrik system. Values obtained with different assay methods or kits may be different and cannot be used interchangeably. Test results cannot be interpreted as absolute evidence for the presence or absence of malignant disease. Blood (Blood, Venous) 05/29/2022 10:30 AM TUBER MACHINE OPERATOR HELPER 05/29/2022 10:32 AM TUBER MACHINE OPERATOR HELPER us Addy Altamirano M.D. LAB BLOOD ADD-ON Final Resu lt Performing Organization Address City/[facility] Co de Phone Number [facility] [address] [place] [address], [facility] NPRG [place] [address] [place] [address] * (ABNORMAL) Hemoglobin A1c (05/14/2022 2:27 PM TUBER MACHINE OPERATOR HELPER) Only the most recent of11 resultswithin the time period is included. Hemoglobin A1c, B 9.5(H) 4.2 - 5.6 % 05/14/2022 2:49 PM TUBER MACHINE OPERATOR HELPER NPRG Comment: Hemoglobin A1c values greater than or equal to 6.5 percent are diagnostic for diabetes mellitus. Diagnosis should be confirmed by repeat testing. In diabetic patients, HbA1c goals should be discussed with healthcare provider. Blood (Blood, Venous) 05/14/2022 2:27 PM TUBER MACHINE OPERATOR HELPER 05/14/2022 2:35 PM TUBER MACHINE OPERATOR HELPER us Reynaldo Pinto M.D. LAB BLOOD ADD-ON Final Result [facility] [address] [place] [address], [facility] NPRG [facility] [address] [place] [address] * [place] CYSTOURETHROSCOPY (05/14/2022 1:30 PM TUBER MACHINE OPERATOR HELPER) Narrative Brent Gutierrez APRN, C.N.P., M.S. - 05/14/2022 1:30 PM TUBER MACHINE OPERATOR HELPER Brent Gutierrez APRN, C.N.P., M.S. 05/14/2022 2:25 PM URO Cystoscopy (general) Performed by: Brent Gutierrez APRN, C.N.P., M.S. Authorized by: Brent Gutierrez APRN, C.N.P., M.S. Care team members present 1. Xin Anderson C.M.A. IMPRESSION urinary retention (No evidence of anatomic obstruction of the prostate) Additional procedures performed: cystoscopy PROCEDURE DETAILS Anterior urethra: Normal: yes Posterior urethra: Normal: yes Prostate: Characteristics: Non-obstructive (No evidence of anatomic obstruction of the prostate) Sphincter: Characteristics: Coapting Ureters: Characteristics: Effluxing clear urine Effluxing clear urine - side: Right Bladder: Normal: no Trabeculation: Large Lesions: None Cellulues: Scattered cellules. Stones present: no Foreign body: absent Fistula visualized: no Capacity: Large Quality of urine: Clear Residual upon entry: Moderate Retroflex view: Normal: yes Cystoscopy today noted unremarkable urethra. Prostate was noted be nonobstructive. Bladder was with evidence of chronic urinary retention findings including global severe trabeculation and scattered cellules. Bladder was without evidence of bladder tumor, mass, suspicious erythematous lesions, stones, foreign bodies. See QREADS for pictures Blue light imaging agent used: no A flexible cystoscope was inserted through the urethra into the bladder. Cystoscope was removed at the end of procedure. CONSENT Consent obtained: written UNIVERSAL PROTOCOL All relevant documentation and testing were reviewed and available. All required blood products, implants, devices and or special equipment were made available as applicable. Pre-procedure verification was conducted and the correct site was marked if required. A fire risk assessment was done as applicable. The procedural time-out to verify correct patient, correct side/site, and procedure was conducted prior to performing the procedure and confirmed in a procedural pause. PRE-PROCEDURE DETAILS Procedure purpose: Diagnostic Indications: BPH/lower urinary tract symptoms/nocturia Appropriate hand hygiene, gown, cap, mask, protective eyewear, sterile gloves, skin preparation, sterile drape, and strict aseptic technique were utilized as applicable for the procedure.: yes Site preparation: Povidone-iodine SEDATION / ANESTHESIA Anesthesia method: topical application POST-PROCEDURE DETAILS Procedure completed successfully: yes Complications: no apparent complications us Brent Gutierrez APRN C.N.P., M.S. UROLOGY PRECIOUS CARNEY Final Result * US Kidneys Bilateral with Bladder (03/28/2022 1:27 PM CDT) Anatomical Region Laterality Modality Abdomen, Renal, Ultrasound R ST LOS, Ultrasound ARZ LOS, Ultrasound FLA LOS Bilateral Ultrasound 03/28/2022 2:06 PM CDT Impressions 03/28/2022 2:08 PM CDT Mildly hypertrophied solitary right kidney without hydronephrosis. 1 cm mid renal cyst. Narrative 03/28/2022 2:08 PM CDT EXAM: US KIDNEYS BILATERAL WITH BLADDER COMPARISON: None. FINDINGS: Right kidney: 13.8 cm Cortical thickness: Normal. Parenchymal echogenicity: Normal. Collecting system: No hydronephrosis. Masses: 1 cm mid renal cyst. Left kidney: Surgically absent Bladder: Normal. Procedure Note Vishnu Hull Jr., M.D. - 03/28/2022 EXAM: US KIDNEYS BILATERAL WITH BLADDER COMPARISON: None. FINDINGS: Right kidney: 13.8 cm Cortical thickness: Normal. Parenchymal echogenicity: Normal. Collecting system: No hydronephrosis. Masses: 1 cm mid renal cyst. Left kidney: Surgically absent Bladder: Normal. IMPRESSION: Mildly hypertrophied solitary right kidney without hydronephrosis. 1 cmmid renal cyst. us Brent Gutierrez APRN, C.N.P., M.S. IMG US PROCE DURES Final Result * Foot right plantar first toe 446-Wound Ostomy Image Exam (03/05/2022 11:25 AM CDT) 03/05/2022 11:2 2 AM CDT Narrative IIMS - 03/05/2022 11:25 AM CDT This order has been created and auto-finalized to support the import of images acquired without order. The clinical documentation to support these images can be found on the encounter that produced images. us Provider Not In System IMG NON RAD IMAGING PROCE DURES Final Result IIDE NA * DX Toes Left 3 Views (11/27/2021 11:35 AM CDT) Anatomical Region Laterality Modality Lower Extremity, Toes, Muscu loskeletal RST LOS, Musculoskeletal ARZ LOS, Muskuloskeletal FLA LOS Left Digit al Radiography 11/27/2021 11:5 2 AM CDT Impressions 11/27/2021 11:56 AM CDT No fracture/dislocation or acute osseous abnormality of the second toe. Narrative 11/27/2021 11:56 AM CDT EXAM: DX TOES LEFT 3 VIEWS COMPARISON: February 08, 2017 FINDINGS: Fixed flexion deformities of the distal second and third phalanges. There is no articular dislocation or acute osseous abnormality. Linear calcific density at the level of the distal aspect of the middle phalanx of the third digit is similar to prior. Soft tissue prominence of the distal second and third phalanges. No identified radiopaque foreign body. There is apparent elevation of the nailbed of the first phalanx which can be clinically correlated. Procedure Note Eben Lackey M.D. - 11/27/2021 EXAM: DX TOES LEFT 3 VIEWS COMPARISON: February 08, 2017 FINDINGS: Fixed flexion deformities of the distal second and thirdphalanges. There is no articular dislocation or acute osseous abnormality. Linear calcific density at thelevel of the distal aspect of the middle phalanx of the third digit is similar to prior. Soft tissue prominence of the distal second and third phalanges. Noidentified radiopaque foreign body. There is apparent elevation of the nailbed of the first phalanx which canbe clinically correlated. IMPRESSION: No fracture/dislocation or acute osseous abnormality of the second toe. Natalie Escobar APRN C.N.P., D.N.P. IMG DIAGNOSTI C IMAGING PROCEDURES Final Result * (ABNORMAL) Albumin, Random, Urine (11/13/2021 12:11 PM CDT) Only the most recent of5 resultswithin the time period is included. Microalbumin 339.0 mg/L 11/13/2021 2:30 PM CDT NPRG Creatinine 63 mg/dL 11/13/2021 2:30 PM CDT NPRG Albumin/Creatinin e Ratio 538(H) <17 mg/g 11/13/2021 2:30 PM CDT NPRG Urine (Urine, Midstream) 11/13/2021 12:11 PM CDT 11/13/2021 1:59 PM CDT Reynaldo Pinto M.D. LAB URINE ORDERABLES Final Re sult [facility] [address] [place] [address], [facility] NPRG [facility] [address] [place] [address] * (ABNORMAL) Lipid Panel (11/13/2021 11:53 AM CDT) Only the most recent of5 resultswithin the time period is included. Triglycerides 162(H) mg/dL 11/13/2021 2:18 PM CDT NPRG Comment: ----REFERENCE VALUE---- Normal: <150 mg/dL Borderline High: 150-199 mg/dL High: 200-499 mg/dL Very High: > or =500 mg/dL Cholesterol, Total 137 mg/dL 2021 2:18 PM CDT NPRG Comment: ----REFERENCE VALUE---- Desirable: < 200 mg/dL Borderline High: 200 - 239 mg/dL High: > or = 240 mg/dL Cholesterol, LDL, Calculated 69 mg/dL 11/13/2021 2:18 PM CDT NPRG Comment: ----REFERENCE VALUE---- Desirable: <100 mg/dL Above Desirable: 100-129 mg/dL Borderline High: 130-159 mg/dL High: 160-189 mg/dL Very High: >=190 mg/dL ----ADDITIONAL INFORMATION---- LDL cholesterol calculated using the Silvestre/NIH equation. Cholesterol, HDL 40 >=40 mg/dL 11/14/19 2:18 PM CDT NPRG Cholesterol, Non-HDL, Calculated 97 mg/dL 11/13/2021 2:18 PM CDT NPRG Comment: ----REFERENCE VALUE---- Desirable: <130 mg/dL Above Desirable: 130-159 mg/dL Borderline High: 160-189 mg/dL High: 190-219 mg/dL Very High: > or =220 mg/dL Fasting (8 HR or more) yes 11/13/2021 1:59 PM CDT NPRG Blood (Blood, Venous) 11/13/2021 11:53 AM CDT 11/13/2021 1:59 PM CDT Reynaldo Pinto M.D. LAB BLOOD ADD-ON Final Result [facility] [address] [place] [address], [facility] NPRG [facility] [address] [place] [address] * DX Foot Right 3+ Views (11/14/2020 11:02 AM CDT) Only the most recent of2 resultswithin the time period is included. 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 Narrative 11/14/2020 12:23 PM CDT EXAM: DX FOOT RIGHT 3+ VIEWS COMPARISON: None FINDINGS: There are old fractures of the second and third metatarsals noted. There is a pseudoarthrosis at the base of the second metatarsal from appears to be a nonunion. There is severe pes planus. There is no acute injury. There is mid foot arthritic change noted as well. The left foot is unremarkable. Procedure Note Johan Butler M.D. - 11/14/2020 EXAM: DX FOOT RIGHT 3+ VIEWS COMPARISON: None FINDINGS: There are old fractures of the second and third metatarsalsnoted. There is a pseudoarthrosis at the base of the second metatarsal fromappears to be a nonunion. There is severe pes planus. There is no acute injury. Thereis mid foot arthritic change noted as well. The left foot is unremarkable. 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 Reynaldo Pinto M.D. IMG DIAGNOSTIC IMAGING PROCED URES Final Result * AST (Aspartate Aminotransferase) (11/12/2020 10:55 AM CDT) Only the most recent of3 resultswithin the time period is included. Aspartate Aminotransferase (AST), P 23 8 - 48 U/L 11/12/2020 12:28 PM CDT NPRG Blood (Blood, Venous) 11/12/2020 10:55 AM CDT 11/12/2020 11:35 AM CDT Reynaldo Pinto M.D. LAB BLOOD ADD-ON Final Result [facility] [address] [place] [address], [facility] NPRG [facility] [address] [place] [address] * Ferritin (11/16/2019 10:51 AM CDT) Only the most recent of3 resultswithin the time period is included. Ferritin, S 73 mcg/L 11/16/2019 5:28 PM CDT MKTO Comment: Biotin has been identified by the corporate strategist as a potential interfering substance. Higher concentrations of biotin may be found in multivitamins, hair/nail supplements, and workout supplements. If the result does not match clinical observations, repeat testing after patient refrains from the use of supplements for at least 12 hours. ----REFERENCE VALUE---- Reference values have not been established for patients who are greater than 60 years of age Blood (Blood, Venous) 11/16/2019 10:51 AM CDT 11/16/2019 5:00 PM CDT Reynaldo Pinto M.D. LAB BLOOD ADD-ON Final Result [facility] [address] [place] [address], [facility] MKTO [facility] [place] [address] [place] [address] * Methylmalonic Acid (MMA), Quantitative (05/02/2019 10:49 AM TUBER MACHINE OPERATOR HELPER) Methylmalonic Acid, QN, S 0.19 <=0.40 nmol/mL 05/04/2019 10:59 AM TUBER MACHINE OPERATOR HELPER DTL Comment: ----ADDITIONAL INFORMATION---- This test was developed and its performance characteristics determined by [facility] in a manner consistent with CLIA requirements. This test has not been cleared or approved by the U.S. Food and Drug Administration. Blood (Blood, Venous) 05/02/2019 10:49 AM TUBER MACHINE OPERATOR HELPER 05/03/2019 6:37 AM TUBER MACHINE OPERATOR HELPER Reynaldo Pinto M.D. LAB BLOOD ADD-ON Final Result [facility] [address] [place] [address], [facility] DTL [facility] [address] [place] [address] * S-TSH (Thyroid-Stimulating Hormone - Sensitive) (05/02/2019 10:49 AM TUBER MACHINE OPERATOR HELPER) Only the most recent of2 resultswithin the time period is included. TSH, Sensitive 1.3 0.3 - 4.2 mIU/L 05/02/2019 12:30 PM TUBER MACHINE OPERATOR HELPER NPRG Comment: Biotin has been identified by the corporate strategist as a potential interfering substance. Higher concentrations of biotin may be found in multivitamins, hair/nail supplements, and workout supplements. If the result does not match clinical observations, repeat testing after patient refrains from the use of supplements for at least 12 hours. Blood (Blood, Venous) 05/02/2019 10:49 AM TUBER MACHINE OPERATOR HELPER 05/02/2019 12:05 PM TUBER MACHINE OPERATOR HELPER Reynaldo Pinto M.D. LAB BLOOD ADD-ON Final Result Performing Organization Address [facility] Co de Phone Number [facility] [address] [place] [address], [facility] NPRG [facility] [address] [place] [address] * Folate (05/02/2019 10:49 AM TUBER MACHINE OPERATOR HELPER) Folate, S >20.0 >=4.0 mcg/L 05/02/2019 5:13 PM TUBER MACHINE OPERATOR HELPER MKTO Comment: Biotin has been identified by the corporate strategist as a potential interfering substance. Higher concentrations of biotin may be found in multivitamins, hair/nail supplements, and workout supplements. If the result does not match clinical observations, repeat testing after patient refrains from the use of supplements for at least 12 hours. Blood (Blood, Venous) 05/02/2019 10:49 AM TUBER MACHINE OPERATOR HELPER 05/02/2019 2:59 PM TUBER MACHINE OPERATOR HELPER Reynaldo Pinto M.D. LAB BLOOD ADD-ON Final Result Performing Organization Address [facility]/ZIP Co de Phone Number [facility] [address] [place] [address], [place] MKTO [facility] [place] [address] [place] [address] * [place] Cardiac Perfusion Rest and Stress SPECT (08/10/2018 1:52 PM CDT) Narrative Procedure Note Nya Holder M.D. - 08/03/2018 11:59 PM CDT Stress portion of a stress Myoview. ORDERING PHYSICIAN: Dr. Daly Mejias. REASON: Shortness of breath. PROCEDURE INFORMATION The patient underwent a standard Lexiscan infusion protocol. Toleratedthe procedure, no complications. Baseline heart rate 95, increased to 107 beats per minute. Baseline bloodpressure 132/70, increased to 142/80. Baseline ECG: Sinus rhythm, 94 beats per minute first. Normal axis andintervals. Stress/Lexiscan ECG: There are no diagnostic ST-T wave changes to suggestischemia. CONCLUSIONS: 1. See separate report for perfusion results. 2. EKG negative for ischemic changes or arrhythmias. 3. See details below. CT CT Job ID: [id number] Daly Mejias M.D. [facility] PROCEDURES Final Result Performing Organization Address [facility] Co de Phone Number JUDD N/A * (ABNORMAL) Lipid Panel (07/27/2018) Only the most recent of3 resultswithin the time period is included. Triglycerides 226(A) 40 - 160 [employer] [facility] NON-INTERFACE D LAB Cholesterol, Total 139 0 - 200 E XTERNAL NON-INTERFACE D LAB Cholesterol, HDL, S 38 35 - 70 EXTERNAL NON-INTERFACE D LAB LDL Cholesterol 70 EXTE RNAL NON-INTERFACE D LAB Blood (Blood, Venous) us Ordering Provider External M.DMaren LAB BLOOD NON AD D-ON Final Result Performing Organization Address [facility]/ZIP Co de Phone Number EXTERNAL NON-INTERFACED LAB [address] [place] [address] * DX Abdomen 1 View (07/20/2018 9:51 PM TUBER MACHINE OPERATOR HELPER) Anatomical Region Laterality Modality Abdomen, Abdominal RST LOS, Abdominal ARZ LOS, Abdominal FLA LOS N/A Digital Radiography 07/20/2018 10:0 3 PM TUBER MACHINE OPERATOR HELPER Impressions 07/20/2018 10:05 PM TUBER MACHINE OPERATOR HELPER IMPRESSION: Moderate stool throughout the length of the colon. Narrative 07/20/2018 10:05 PM TUBER MACHINE OPERATOR HELPER EXAM: DX ABDOMEN 1 VIEW COMPARISON: None FINDINGS: Moderate amount of stool throughout the length of the bowel. No evidence for obstruction or ileus. Status post cholecystectomy. Surgical conor within the left upper quadrant. Degenerative changes of the spine Procedure Note Pepe Melendez M.D. - 07/20/2018 EXAM: DX ABDOMEN 1 VIEW COMPARISON: None FINDINGS: Moderate amount of stool throughout the length of the bowel.No evidence for obstruction or ileus. Status post cholecystectomy. Surgicalstaples within the left upper quadrant. Degenerative changes of the spine IMPRESSION: Moderate stool throughout the length of the colon. Melanie RAGLAND DIAGNOSTIC IMAGING PROC EDURES Final Result * (ABNORMAL) CBC with Differential, Blood (06/25/2017) Only the most recent of3 resultswithin the time period is included. Hemoglobin 13.3(A) 13.5 - 17.5 EXTERNAL NON-INTERFACE D LAB Hematocrit 39(A) 41 - 53 % EXTERNAL NON-INTERFACE D LAB Platelet Count 233 150 - 399 EXTER NAL NON-INTERFACE D LAB Auto WBC 6.2 3.3 - 10.0 10*3/mL EXTERNAL NON-INTERFACE D LAB Blood (Blood, Venous) us Ordering Provider External M.D. LAB BLOOD ADD-ON Final Result Performing Organization Address [facility]/ZIP Co de Phone Number EXTERNAL NON-INTERFACED LAB [address] [place] [address] * DX Foot Left 3+ Views (02/08/2017 12:49 PM CDT) Anatomical Region Laterality Modality Lower Extremity, Foot Left Radiograph ic Imaging 02/08/2017 12:4 9 PM CDT Addenda Addendum by ProviderAliyah M.D. on 02/08/2017 12:49 PM CDT RAD^^^MA XR Foot Left 3 or more views 02/08/2017 12:49:20 XR Foot Left 3 or more views Impressions 02/08/2017 12:58 PM CDT No acute pathology. 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 There are no acute fractures or dislocations. There are small Achilles and plantar spurs off the calcaneus. The surrounding soft tissues appear normal. Procedure Note Ar Redman M.D. / ProviderAliyah M.D. 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 There are no acute fractures or dislocations. There are small Achilles and plantar spurs off the calcaneus. The surrounding soft tissues appear normal. IMPRESSION: No acute pathology. us Lynda Gentile(R)(CT), RMarenTMaren(R)(M) IMG DIAGNOSTIC IMAGING PROCEDURES Edited Result - Final * Iron and Total Iron-Binding Capacity (09/22/2016 10:20 AM CDT) Only the most recent of2 resultswithin the time period is included. Iron 109 59 - 158 MCGDL POWERCHART Total Iron Binding Capacity 352 250 - 400 MCGDL POWERCHART Percent Saturation 31 14 - 50 POWERCHART Blood 09/22/2016 10:2 0 AM CDT us Morris Davis M.D. LAB BLOOD ADD-ON Final Result POWERCHART * Hemoglobin (09/22/2016 10:20 AM CDT) Hemoglobin 14.0 13.5 - 17.5 GDL POWERCHART Comment: lot [id number] ex date 10/11/2017 Blood 09/22/2016 10:2 0 AM CDT us Morris Davis M.D. LAB BLOOD ADD-ON Final Result POWERCHART * US Abdomen Complete (07/24/2016 11:21 AM TUBER MACHINE OPERATOR HELPER) Anatomical Region Laterality Modality Abdomen N/A Ultrasound 07/24/2016 11:2 1 AM TUBER MACHINE OPERATOR HELPER Addenda Addendum by Aliyah Boswell M.D. on 07/24/2016 11:21 AM TUBER MACHINE OPERATOR HELPER RAD^^^MA US Abdomen Complete 07/24/2016 11:21:00 Impressions 07/24/2016 12:24 PM TUBER MACHINE OPERATOR HELPER Fatty liver. No acute findings. Narrative 07/24/2016 12:24 PM TUBER MACHINE OPERATOR HELPER EXAM: US Abdomen Complete INDICATION: Luq abdominal pain/ FINDINGS: Complete ultrasound examination of the abdomen demonstrate surgically absent left kidney and gallbladder. Examination is compromised by fatty liver and the patient's body habitus. The liver pancreas spleen and right kidney are not optimally visualized. No abnormality identified. Mild dilatation of the common bile duct likely secondary to prior cholecystectomy. Proximal IVC and main portal vein are patent. Visualized abdominal aorta is of normal caliber. Procedure Note Nick Arguello M.D. / Aliyah Boswell M.D. - 11/10/2016 EXAM: US Abdomen Complete INDICATION: Luq abdominal pain/ FINDINGS: Complete ultrasound examination of the abdomen demonstrate surgically absent left kidney and gallbladder. Examination is compromised by fatty liver and the patient's body habitus. The liver pancreas spleen and right kidney are not optimally visualized. No abnormality identified. Mild dilatation of the common bile duct likely secondary to prior cholecystectomy. Proximal IVC and main portal vein are patent. Visualized abdominal aorta is of normal caliber. IMPRESSION: Fatty liver. No acute findings. Pamela Mills R.V.T., KierstenMMarenSMaren IMG US PROCEDUR ES Edited Result - Final * (ABNORMAL) Automated Differential (07/24/2016 10:26 AM TUBER MACHINE OPERATOR HELPER) Only the most recent of2 resultswithin the time period is included. Pathologist [facility] Absolute Neutrophils 6.68 1.70 - 7.00 109L POWERCHART Lymphocytes 0.97 0.90 - 2.90 X109L POWERCHART Monocytes 0.44 0.30 - 0.90 X109L POWERCHART Eosinophils 0.01(L) 0.05 - 0.50 X109L POWERCHART Absolute Basophil 0.01 0.00 - 0.30 X109L POWERCHART Blood 07/24/2016 10:2 6 AM TUBER MACHINE OPERATOR HELPER 07/24/2016 10:26 AM TUBER MACHINE OPERATOR HELPER Teja Reyes M.D. LAB BLOOD ADD-ON Final Re sult Performing Organization Address [facility] de Phone Number POWERCHART * CRP (C-Reactive Protein) (07/24/2016 10:26 AM TUBER MACHINE OPERATOR HELPER) Pathologist [facility] C-Reactive Protein (CRP), S <3.8 <=4.9 MGL POWERCHART Blood 07/24/2016 10:2 6 AM TUBER MACHINE OPERATOR HELPER us Teja Reyes M.D. LAB BLOOD ADD-ON Final Re sult Performing Organization Address [facility] de Phone Number POWERCHART * Lipase (07/24/2016 10:26 AM TUBER MACHINE OPERATOR HELPER) Pathologist [facility] Lipase, S 22 13 - 60 UL POWERCHART Comment:Reference ranges hav e not been established for patients that are less than 16 years of age Blood 07/24/2016 10:2 6 AM TUBER MACHINE OPERATOR HELPER us Teja Reyes M.D. LAB BLOOD ADD-ON Final Re sult Performing Organization Address [facility] de Phone Number POWERCHART * (ABNORMAL) Urinalysis, Midstream, with culture if indicated (07/24/2016 10:00 AM TUBER MACHINE OPERATOR HELPER) HXUr Color Yellow Colorless POWERCHART Clarity Clear Clear POWERCHART Glucose 100(A) Negative MGDL POWERCHART HXBILIRUBIN Negative Negative POWERCHART Ketones, QL(U) Negative Negative MGDL POWERCHART Specific Imperial, POCT, U 1.020 POWERCHART Comment: Reference Range Specific Imperial: 1.000-1.035 HXBLOOD Negative Negative POWERCHART pH, POCT, Urine 7.5 <5.0 POWERCHART Comment: Reference Range pH: 5.0-8.0 Protein, Ur, Dip 30(A) Negative MGDL POWERCHART Urobilinogen 0.2 0.2 MGDL POWERCHART Comment: Reference Range Urobilinogen: 0.2-1.0 mg/dL HXNITRITE Negative Negative POWERCHART Leukocyte Esterase Negative Negative POWERCHART HXUR WBC. None Seen None Seen HPF POWERCHART HXUR RBC. Occ-2 None Seen HPF POWERCHART HXUR Bacteria, None Seen None Seen POWERCHART Urine, First Voided 07/24/2016 10:00 AM TUBER MACHINE OPERATOR HELPER us Teja Reyes M.D. LAB URINE ORDERABLES Alanis l Result Performing Organization Address [facility] [facility] de Phone Number POWERCHART * Sedimentation Rate (05/27/2016 2:15 PM TUBER MACHINE OPERATOR HELPER) Sedimentation Rate, B 16 0 - 22 MMHR POWERCHART Blood 05/27/2016 2:15 PM TUBER MACHINE OPERATOR HELPER Morris Dvais M.D. LAB BLOOD ADD-ON Final Result Performing Organization Address [facility] de Phone Number POWERCHART * Uric Acid (05/27/2016 2:15 PM TUBER MACHINE OPERATOR HELPER) Uric Acid, S 7.6 3.7 - 8.0 MGDL POWERCHART Blood 05/27/2016 2:15 PM TUBER MACHINE OPERATOR HELPER Morris Davis M.D. LAB BLOOD ADD-ON Final Result Performing Organization Address [facility] de Phone Number POWERCHART * DX Abdomen Supine with Upright or Decubitus 2 Views (05/18/2016 10:24 PM TUBER MACHINE OPERATOR HELPER) Anatomical Region Laterality Modality Abdomen Right Radiographic Rosa ging 05/18/2016 10:2 4 PM TUBER MACHINE OPERATOR HELPER Addenda Addendum by ProviderAliyah M.D. on 05/18/2016 10:24 PM TUBER MACHINE OPERATOR HELPER RAD^^^MA XR Abdomen 2 Views 05/18/2016 22:24:26 Impressions 05/19/2016 9:04 AM TUBER MACHINE OPERATOR HELPER Stool throughout much of the distal colonic distribution with possible rectal fecal impaction. No dilated small bowel loops or evidence of free intraperitoneal air. Narrative 05/19/2016 9:04 AM TUBER MACHINE OPERATOR HELPER Supine and upright projections of the abdomen obtained. Comparison: No prior Findings: There is extensive stool throughout the distal colonic distribution with questionable mild distention of the rectum which is stool-filled. No dilated small bowel loops identified. No air-fluid levels of significance. No findings suggestive of free intraperitoneal air. Postsurgical clips are present within the upper abdomen. There is no acute osseous abnormality. Visualized portions of the lung bases are clear. Procedure Note Hard, Eben Holman M.D. / ProviderAliyah M.D. - 09/27/2016 Supine and upright projections of the abdomen obtained. Comparison: No prior Findings: There is extensive stool throughout the distal colonic distribution with questionable mild distention of the rectum which is stool-filled. No dilated small bowel loops identified. No air-fluid levels of significance. No findings suggestive of free intraperitoneal air. Postsurgical clips are present within the upper abdomen. There is no acute osseous abnormality. Visualized portions of the lung bases are clear. IMPRESSION: Stool throughout much of the distal colonic distribution with possible rectal fecal impaction. No dilated small bowel loops or evidence of free intraperitoneal air. 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) 05/02/2019 Edema 05/02/2019 Numbness Hand 05/02/2019 Hypertension Essential Primary 06/15/2019 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) 06/15/2019 Monitoring For Therapeutic Drug Therapy 06/15/2019 Pain Leg 06/15/2019 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) 11/16/2019 Hypertension Essential Primary 11/16/2019 Pure Hypercholesterolemia 11/16/2019 Obesity Body Mass Index 30-39.9 Adult 11/16/2019 Deficiency Iron 11/16/2019 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) 05/10/2020 Obesity Body Mass Index 30-39.9 Adult 05/14/2020 Hypertension Essential Primary 05/14/2020 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) 05/14/2020 Pure Hypercholesterolemia 05/15/2020 Hypertension Essential Primary 05/15/2020 Hyperlipidemia 05/15/2020 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) 05/15/2020 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) 11/12/2020 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) 11/12/2020 Hypertension Essential Primary 11/12/2020 Hyperlipidemia 11/12/2020 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) 11/14/2020 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) 11/14/2020 Hypertension Essential Primary 11/14/2020 Pure Hypercholesterolemia 11/14/2020 Hyperlipidemia 11/14/2020 Pain Foot Right 11/14/2020 Unsteadiness Gait Disorder Non Orthopedic 11/14/2020 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) 11/15/2020 Pain Foot Right 11/15/2020 Onychomycosis 11/15/2020 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) 01/17/2021 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) 01/17/2021 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) 06/06/2021 Pain Low Back Unspecified 06/06/2021 Obesity Body Mass Index 30-39.9 Adult 06/06/2021 Hypertension Essential Primary 06/06/2021 Hyperlipidemia 06/06/2021 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) 06/06/2021 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) 07/23/2021 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) 07/23/2021 Hypertension Essential Primary 11/13/2021 Hyperlipidemia 11/13/2021 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) 11/13/2021 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 Benign Prostatic Hyperplasia Without Obstruction 11/13/2021 Injury Toenail Initial Left 11/27/2021 Injury Toenail Initial Left 11/27/2021 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 Injury Toenail Initial Left 12/03/2021 Onychomycosis 12/03/2021 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) 03/05/2022 Onychomycosis 03/05/2022 Benign Prostatic Hyperplasia Without Obstruction 03/26/2022 Nocturia 03/26/2022 Slowing Urinary Stream 03/26/2022 Cancer Renal Cell Carcinoma Personal History 03/26/2022 Nephrectomy Status Post 03/26/2022 Solitary Kidney Acquired 03/26/2022 Benign Prostatic Hyperplasia Without Obstruction 03/28/2022 Nocturia 03/28/2022 Cancer Renal Cell Carcinoma Personal History 03/28/2022 Nephrectomy Status Post 03/28/2022 Solitary Kidney Acquired 03/28/2022 Benign Prostatic Hyperplasia Without Obstruction 03/28/2022 Nocturia 03/28/2022 Cancer Renal Cell Carcinoma Personal History 03/28/2022 Nephrectomy Status Post 03/28/2022 Solitary Kidney Acquired 03/28/2022 Wound Foot Open Subsequent Right 04/14/2022 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) 05/14/2022 Benign Prostatic Hyperplasia Without Obstruction 05/14/2022 Nocturia 05/14/2022 Slowing Urinary Stream 05/14/2022 Cancer Renal Cell Carcinoma Personal History 05/14/2022 Nephrectomy Status Post 05/14/2022 Solitary Kidney Acquired 05/14/2022 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) 05/16/2022 Benign Prostatic Hyperplasia Without Obstruction 05/27/2022 Benign Prostatic Hyperplasia Without Obstruction 05/29/2022 Nocturia 06/05/2022 Cancer Renal Cell Carcinoma Personal History 06/05/2022 Nephrectomy Status Post 06/05/2022 Solitary Kidney Acquired 06/05/2022 Onychomycosis 06/06/2022 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) 06/06/2022 Rhabdomyolysis 07/23/2022 Failure Renal Acute (Acute Kidney Injury) 07/23/2022 Delirium 07/23/2022 Decline Functional Status 07/23/2022 Dehydration 07/23/2022 Change Mental Status 07/23/2022 Shock (HCC) 07/23/2022 Onychomycosis 09/09/2022 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) 09/09/2022 Edema Lower Extremity 09/09/2022 Atrial Fibrillation Longstanding Persistent (HCC) 09/23/2022 Impaction Fecal (HCC) 10/02/2022 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) 11/11/2022 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) 11/26/2022 Onychomycosis 02/03/2023 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
--- NOTE | 2024-11-25 13:50 | CRLHL7_ITS ---
For Patients: As a result of the Century Cures Act, medical imaging exams and procedure reports are released immediately into your electronic medical record. You may view this report before your referring provider. If you have questions, please contact your health care provider. INDICATION: Lower abdominal pain dysuria TECHNIQUE: CT abdomen and pelvis with 140 mL Isovue 370 intravenous contrast. COMPARISON: CT 09/17/2015 FINDINGS: Lower chest: Heart is enlarged. Basilar mild atelectasis/scarring. Liver: Normal in size and attenuation. No suspicious masses. Gallbladder and bile ducts: Cholecystectomy. Pancreas: Unremarkable. No mass or inflammation. Spleen: Splenic granulomas. Adrenal glands: Normal in size. No nodules. Kidneys: Mild right hydronephrosis hydroureter without obstructing stones seen. Left kidney is absent. GI tract: Small hiatal hernia. The rectum is distended with stool. Mild wall thickening. Diverticulosis. Perirectal slight stranding. Findings may represent stercoral colitis. Vasculature: Abdominal aorta is normal in caliber. Lymph nodes: No lymphadenopathy. Peritoneum/Abdominal Wall: Unremarkable. No sign of mass or infiltration. No free air or significant free fluid. Pelvis: Urinary bladder is distended. Minimal pericystic stranding. Bones: Unremarkable for age. IMPRESSION: : 1. Rectum distended with stool with wall thickening and minimal perirectal stranding this could be seen with stercoral colitis. 2. Urinary bladder distended slight pericystic stranding. Mild dilatation of the renal pelvis and ureter on the right no obstructing stones. Correlate for cystitis. Comparison CT Please note that all CT scans at this facility use dose modulation, iterative reconstruction, and/or weight-based dosing when appropriate to reduce radiation dose to as low as reasonably achievable. Dictated by Sharlene Vela MD @ 11/25/2024 3:05:32 PM (Electronically Signed)
--- NOTE | 2024-11-25 14:07 | ED.ABDPAIN ---
HPI - Abdominal Pain General Chief Complaint: Abdominal Pain Stated Complaint: Possible Infection Time Seen by Provider: 11/25/24 13:31 History of Present Illness HPI narrative: This 89-year-old male comes in reporting lower abdominal pain with constipation and urinary retention. He states that he has 1 kidney. He reports no bowel movement for the past 2 or 3 days. He states that he has not passed any urine since last night. He does not report any fevers. Related Data Home Medications ?Medication ?Instructions ?Recorded ?Confirmed aspirin 81 mg tablet,delayed 81 mg PO QDAY 08/03/23 11/25/24 release (Adult Aspirin Regimen) calcium carbonate (Calcium 600) 600 mg PO QDAY 08/03/23 11/25/24 multivitamin 1 tab PO QAM 08/03/23 11/25/24 omega-3 360 [id number] oil 1 cap PO QDAY 08/03/23 11/25/24 1,200 mg capsule,delayed release (Fish Oil) ketoconazole 2 % topical cream 1 applic topical 03/04/24 11/01/24 polyethylene glycol 3350 17 17 g PO QDAY 06/28/24 11/25/24 gram/dose oral powder (Miralax) Previous Rx's ?Medication ?Instructions ?Recorded terbinafine HCl 250 mg tablet 250 mg PO QDAY #10 tabs 09/29/23 tamsulosin 0.4 mg capsule (Flomax) 0.4 mg PO QHS #90 caps 03/04/24 amlodipine 5 mg tablet 5 mg PO DAILY #90 tabs 05/12/24 duloxetine 30 mg capsule,delayed 30 mg PO BID #180 caps 05/12/24 release aripiprazole 2 mg tablet 2 mg PO DAILY #90 tabs 06/28/24 ferrous sulfate 325 mg (65 mg 325 mg PO DAILY #90 tabs 06/28/24 iron) tablet finasteride 5 mg tablet 5 mg PO DAILY #90 tabs 06/28/24 furosemide 20 mg tablet 40 mg (2 x 20 mg) PO DAILY #60 tabs 06/28/24 lisinopril 40 mg tablet 40 mg PO DAILY #90 tabs 06/28/24 metformin 1,000 mg tablet 1,000 mg PO BID #180 tabs 06/28/24 rosuvastatin 20 mg tablet 20 mg PO QPM #90 tabs 06/28/24 sennosides 8.6 mg-docusate sodium 1 tab PO QPM #90 tabs 06/28/24 50 mg tablet (Senexon-S) nystatin 100,000 unit/gram topical 1 applic topical BID #60 grams 07/07/24 powder tramadol 50 mg tablet 50 mg PO BID pain #60 tabs 09/15/24 metoprolol tartrate 50 mg tablet 50 mg PO BID #180 tabs 10/24/24 ropinirole 2 mg tablet 2 mg PO QPM #90 tabs 10/24/24 gabapentin 100 mg capsule 100 mg PO TID #90 caps 10/31/24 pantoprazole 40 mg tablet,delayed 40 mg PO DAILY #90 tabs 11/22/24 release pioglitazone 45 mg tablet 45 mg PO DAILY #90 tabs 11/22/24 Allergies Allergy/AdvReac Type Severity Reaction Status Date / Time furosemide (From Lasix) Allergy Intermediate Anaphylaxis Verified 11/25/24 13:38 pregabalin AdvReac Unknown swelling Verified 11/25/24 13:38 in extremities Review of Systems Status of ROS Reports: 10 or more systems reviewed and unremarkable except as noted in History and below Narrative Constitutional: No fevers, no weight gain or loss. Eyes: No discharge. No vision changes. HENT: No congestion, no sore throat, no ear pain. Cardiovascular: No chest pain, no palpitations. Respiratory: No shortness of breath, no wheezes, no cough. Gastrointestinal: No vomiting, no diarrhea. Lower abdominal pain with report of constipation and urinary retention. Genitourinary: No dysuria, no hematuria. Musculoskeletal: Normal range of motion. Skin: No rashes, no pruritis. Neurological: No dizziness, weakness, sensory change, speech change. Endo/Heme/Allergies: No bruising or bleeding. No polydipsia. Pysch: no suicidality, no anxiety, no insomnia. All other systems reviewed and are negative. [facility] Medical History Venous stasis ulcers ?I83.009 - Varicose veins of unspecified lower extremity with ulcer of unspecified site (ICD-10) ?L97.909 - Non-pressure chronic ulcer of unspecified part of unspecified lower leg with unspecified severity (ICD-10) Venous insufficiency of both lower extremities ?I87.2 - Venous insufficiency (chronic) (peripheral) (ICD-10) Candidiasis ?B37.9 - Candidiasis, unspecified (ICD-10) Anemia ?D64.9 - Anemia, unspecified (ICD-10) CAD (coronary artery disease) ?I25.10 - Atherosclerotic heart disease of [place] coronary artery without angina pectoris (ICD-10) Leg weakness, bilateral ?R29.898 - Other symptoms and signs involving the musculoskeletal system (ICD-10) Unstable gait ?R26.81 - Unsteadiness on feet (ICD-10) Constipation by delayed colonic transit ?K59.01 - Slow transit constipation (ICD-10) BPH associated with nocturia ?N40.1 - Benign prostatic hyperplasia with lower urinary tract symptoms (ICD-10) ?R35.1 - Nocturia (ICD-10) Pancreatitis (01/28/13) ?K85.90 - Acute pancreatitis without necrosis or infection, unspecified (ICD-10) History of unilateral nephrectomy ?Z90.5 - Acquired absence of kidney (ICD-10) Surgical History Status post cholecystectomy ?Z90.49 - Acquired absence of other specified parts of digestive tract (ICD-10) Status post cataract extraction ?Z98.49 - Cataract extraction status, unspecified eye (ICD-10) History of cholecystectomy (05/26/12) ?Z90.49 - Acquired absence of other specified parts of digestive tract (ICD-10) History of bilateral cataract extraction ?Z98.41 - Cataract extraction status, right eye (ICD-10) ?Z98.42 - Cataract extraction status, left eye (ICD-10) Exam Narrative: Exam Narrative: Constitutional: Well-developed, well-nourished, no acute distress. HEENT: Normocephalic, atraumatic. Neck: Normal range of motion. Nontender. Supple. Heart: Regular. No murmurs. Normal rate. Intact distal pulses. Lungs: Clear to auscultation. No chest discomfort. No wheezes, rhonchi, or rales. Abdomen: Normal bowel sounds. Tenderness in the lower abdomen. No rebound tenderness. Genitalia: Deferred. Back: No midline tenderness. Normal range of motion. Extremities: Normal range of motion. Bilateral pedal edema. Skin: Intact. No rash. Warm. No erythema or pallor. Neurologic: No altered sensation. No weakness. Alert and oriented. Psychiatric: No suicidality. No anxiety or depression. No insomnia. Nursing notes and vitals signs are reviewed. Const: Vital Signs, click to edit/add: Vital Signs - 24 hr 11/25/24 13:26 11/25/24 13:47 11/25/24 13:48 Temperature 97.4 F L Pulse Rate 92 86 Pulse Rate [Pulse Oximeter] 82 Respiratory Rate 20 Blood Pressure 185/145 H Blood Pressure [Le ft Upper Arm] 182/123 H Pulse Oximetry 95 94 95 Oxygen Delivery Me thod Room Air 11/25/24 14:00 11/25/24 14:03 11/25/24 14:35 Temperature Pulse Rate 86 86 Pulse Rate [Pulse Oximeter] Respiratory Rate Blood Pressure 174/135 H Blood Pressure [Le ft Upper Arm] Pulse Oximetry 93 95 Oxygen Delivery Me thod 11/25/24 14:36 11/25/24 14:45 11/25/24 14:50 Temperature Pulse Rate 82 90 93 Pulse Rate [Pulse Oximeter] Respiratory Rate Blood Pressure Blood Pressure [Le ft Upper Arm] Pulse Oximetry 96 96 93 Oxygen Delivery Me thod 11/25/24 15:00 11/25/24 15:15 11/25/24 15:18 Temperature Pulse Rate 90 92 79 Pulse Rate [Pulse Oximeter] Respiratory Rate Blood Pressure 178/116 H Blood Pressure [Le ft Upper Arm] Pulse Oximetry 95 96 96 Oxygen Delivery Me thod 11/25/24 15:30 11/25/24 15:33 11/25/24 15:45 Temperature Pulse Rate 91 81 97 Pulse Rate [Pulse Oximeter] Respiratory Rate Blood Pressure 172/122 H Blood Pressure [Le ft Upper Arm] Pulse Oximetry 96 98 96 Oxygen Delivery Me thod 11/25/24 15:48 11/25/24 16:00 11/25/24 16:02 Temperature Pulse Rate 99 86 85 Pulse Rate [Pulse Oximeter] Respiratory Rate 23 Blood Pressure 174/104 H Blood Pressure [Le ft Upper Arm] Pulse Oximetry 96 93 94 Oxygen Delivery Me thod 11/25/24 16:15 11/25/24 16:19 11/25/24 16:30 Temperature Pulse Rate 91 98 89 Pulse Rate [Pulse Oximeter] Respiratory Rate 15 Blood Pressure 161/107 H Blood Pressure [Le ft Upper Arm] Pulse Oximetry 97 96 96 Oxygen Delivery Me thod Course Vital Signs Vital signs: Initial Vital Signs Temperature 97.4 F L 11/25/24 13:26 Temperature Source Temporal Artery Scan 11/25/24 13:26 Pulse Rate 82 11/25/24 13:26 Respiratory Rate 20 11/25/24 13:26 Blood Pressure 182/123 H 11/25/24 13:26 Blood Pressure Mean 142 H 11/25/24 13:26 Pulse Oximetry 95 11/25/24 13:26 Oxygen Delivery Method Room Air 11/25/24 13:26 Vital Signs Temperature 97.4 F L 11/25/24 13:26 Pulse Rate 82 11/25/24 13:26 Respiratory Rate 20 11/25/24 13:26 Blood Pressure 182/123 H 11/25/24 13:26 Pulse Oximetry 95 11/25/24 13:26 Oxygen Delivery Method Room Air 11/25/24 13:26 Temperature 97.4 F L 11/25/24 13:26 Pulse Rate 89 11/25/24 16:30 Respiratory Rate 15 11/25/24 16:15 Blood Pressure 161/107 H 11/25/24 16:19 Pulse Oximetry 96 11/25/24 16:30 Oxygen Delivery Method Room Air 11/25/24 13:26 MDM - Abdominal Pain MDM Narrative Medical decision making narrative: This patient comes in reporting no urine passing since last night. He has lower abdominal pain. A bladder ultrasound is performed only showed around 25 mL. The patient is incontinent of urine and likely is passing urine but states that he is not aware of it. His skin in his fold of his belly is erythematous and this extends down into his perineum also possibly due to prolonged exposure to urine. A CT scan was obtained which does show a distended bladder so multiple attempts were made to insert a Mtz catheter but these were unsuccessful. I personally attempted by using some tools to get past the foreskin to see the urethral meatus. His foreskin is not retractable. I did use lidocaine to numb up his foreskin in order to stretch and hopefully see the urethral meatus. This was unsuccessful as the shaft of his penis was short enough where we could not get access. I did consider placing a suprapubic catheter but his body habitus makes that also more complicated. 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 His labs returned with normal results. EKG does show new onset of atrial fibrillation. He did have a brief episode of tachycardia but otherwise his rate is been controlled. It seems best for him to be transferred to a facility where they have Urology and Cardiology for ongoing management. I did speak with the hospitalist on-call at [facility], Dr. Merritt, who will accept the patient pending a discussion with the urologist. This is occurring well after the end of my shift and Dr. Bass will be able to discuss plans with the urologist. Lab Data Labs: Lab Results 11/25/24 11/25/24 Range/Units 14:00 14:26 WBC 7.93 (4.50-11.00) K/uL RBC 4.51 (4.30-5.90) m/uL Hgb 12.9 L (13.5-17.5) gm/dL Hct 40.0 (37.0-53.0) % MCV 89 (80-100) fL MCH 29 (26-34) pg MCHC 32 (32-36) gm/dL RDW Coeff of Manjinder 14.2 (11.5-15.5) % Plt Count 188 (140-440) K/uL Neut % (Auto) 80.8 H (42.0-72.0) % Lymph % (Auto) 10.0 L (20-44) % Winston % (Auto) 8.8 (0.0-11.0) % Eos % (Auto) 0.0 (0.0-7.0) % Baso % (Auto) 0.1 (0.0-3.0) % Neut # (Auto) 6.40 (1.7-7.0) K/uL Lymph # (Auto) 0.80 L (0.90-2.90) K/uL Winston # (Auto) 0.70 (0.00-0.90) K/UL Eos # (Auto) 0.00 (0.00-0.50) K/uL Baso # (Auto) 0.01 (0.00-0.30) K/uL Abs Immat Gran (auto) 0.02 (0.00-0.30) K/uL Imm/Tot Granulo (auto) 0.3 % Sodium 137 (135-149) mmol/L Potassium 4.1 (3.6-5.1) mmol/L Chloride 101 (96-114) mmol/L Carbon Dioxide 24 (20-32) mmol/L Anion Gap 12 (7-15) mEq/L BUN 18 (7-30) mg/dL Creatinine 0.8 (0.5-1.5) mg/dL Estimated GFR 86 ml/min Glucose 190 H (60-115) mg/dL Calcium 9.8 (8.4-10.6) mg/dL POC Troponin I 0.03 (0.01-0.04) ng/ml Imaging Data CT scan - abdomen: Radiologist's impression: 1. Rectum distended with stool with wall thickening and minimal perirectal stranding this could be seen with stercoral colitis. 2. Urinary bladder distended slight pericystic stranding. Mild dilatation of the renal pelvis and ureter on the right no obstructing stones. Correlate for cystitis. Comparison CT ECG Data Attestation: I personally reviewed and interpreted this ECG as follows: Interpretation: Atrial fibrillation, rate 89 beats per minute. There are no specific ST or T-wave abnormalities. Discharge Plan Discharge Clinical Impression: Acute urinary retention, Atrial fibrillation, new onset Patient Disposition: [facility] Condition: Unchanged Prescriptions: No Action calcium carbonate [Calcium 600] 600 mg calcium (1,500 mg) tablet 600 mg PO QDAY aspirin [Adult Aspirin Regimen] 81 mg tablet,delayed release (DR/EC) 81 mg PO QDAY multivitamin Tablet 1 tab PO QAM Fish Oil 360-1,200 mg capsule,delayed release(DR/EC) 1 cap PO QDAY terbinafine HCl 250 mg tablet 250 mg PO QDAY Qty: 10 0RF ropinirole 2 mg tablet 2 mg PO QPM Qty: 90 3RF metoprolol tartrate 50 mg tablet 50 mg PO BID Qty: 180 3RF ketoconazole 2 % cream 1 applic topical tamsulosin [Flomax] 0.4 mg capsule 0.4 mg PO QHS Qty: 90 3RF furosemide 20 mg tablet 40 mg PO DAILY Qty: 60 5RF lisinopril 40 mg tablet 40 mg PO DAILY Qty: 90 1RF aripiprazole 2 mg tablet 2 mg PO DAILY Qty: 90 1RF metformin 1,000 mg tablet 1,000 mg PO BID Qty: 180 1RF rosuvastatin 20 mg tablet 20 mg PO QPM Qty: 90 3RF polyethylene glycol 3350 [Miralax] 17 gram/dose powder 17 g PO QDAY sennosides-docusate sodium [Senexon-S] 8.6-50 mg tablet 1 tab PO QPM Qty: 90 4RF ferrous sulfate 325 mg (65 mg iron) tablet 325 mg PO DAILY Qty: 90 3RF finasteride 5 mg tablet 5 mg PO DAILY Qty: 90 1RF amlodipine 5 mg tablet 5 mg PO DAILY Qty: 90 3RF duloxetine 30 mg capsule,delayed release(DR/EC) 30 mg PO BID Qty: 180 3RF nystatin 100,000 unit/gram powder 1 applic topical BID Qty: 60 5RF tramadol 50 mg tablet 50 mg PO BID Qty: 60 5RF gabapentin 100 mg capsule 100 mg PO TID Qty: 90 2RF pantoprazole 40 mg tablet,delayed release (DR/EC) 40 mg PO DAILY Qty: 90 0RF pioglitazone 45 mg tablet 45 mg PO DAILY Qty: 90 0RF Stand Alone Forms: [facility] Info Instructions
[2024-11-25 14:13] LABS: Hematocrit 40.0 % (37.0-53.0); Hemoglobin* 12.9 gm/dL (13.5-17.5); Immature Granulocytes Abs Auto 0.02 K/uL (0.00-0.30); Immature Granulocytes Pct Auto 0.3 %; Mean Corpuscular HGB Conc 32 gm/dL (32-36); Mean Corpuscular Hemoglobin 29 pg (26-34); Mean Corpuscular Volume 89 fL (80-100); RDW Coefficient of Variation % 14.2 % (11.5-15.5); Red Blood Count 4.51 m/uL (4.30-5.90); White Blood Count* 7.93 K/uL (4.50-11.00)
[2024-11-25 14:35] LABS: Lymphocytes Absolute Auto 0.80 K/uL (0.90-2.90); Slide Review Reflex No
[2024-11-25 14:39] LABS: Chloride* 101 mmol/L (96-114); Potassium* 4.1 mmol/L (3.6-5.1); Sodium* 137 mmol/L (135-149)
[2024-11-25 14:42] LABS: Anion Gap 12 mEq/L (7-15); Blood Urea Nitrogen* 18 mg/dL (7-30); Calcium* 9.8 mg/dL (8.4-10.6); Carbon Dioxide* 24 mmol/L (20-32); Creatinine* 0.8 mg/dL (0.5-1.5); Estimated Glomerular Filt Rate 86 ml/min; Glucose* 190 mg/dL (60-115)
[2024-11-25 16:28] LABS: Troponin, Point-of-Care* 0.03 ng/ml (0.01-0.04)
== END 2024-11-25 19:15 | disposition short-term general hospital (02) ==
PROVIDERS: Emergency Provider Emergency Medicine Emergency Medical Services; PCP Family Medicine
DX: R33.9 Retention of urine, unspecified (principal); I48.91 Unspecified atrial fibrillation
CPT/HCPCS: 36415; 74177; 80048; 81001; 84484; 85025; 99285; Q9967

== ENCOUNTER 2024-11-25 19:16 | Outpatient (CLI) | payer MEDICARE, SELFPAY | END 2024-11-25 19:17 | disposition home or self-care (01) | LOC: AMB 11-28 13:52 | PROVIDERS: PCP Family Medicine; Visit Provider Emergency Medicine | DX: R33.9 Retention of urine, unspecified (principal); R10.9 Unspecified abdominal pain | CPT/HCPCS: A0425; A0427 ==

== ENCOUNTER 2024-12-21 10:33 | Outpatient (CLI) | payer MEDICARE, SELFPAY | END 2024-12-21 10:34 | disposition home or self-care (01) | LOC: WOUND 10:33 | PROVIDERS: PCP Family Medicine; Visit Provider Nurse Practitioner Family | DX: E11.42 Type 2 diabetes mellitus with diabetic polyneuropathy (principal); I73.9 Peripheral vascular disease, unspecified; I87.2 Venous insufficiency (chronic) (peripheral); I89.0 Lymphedema, not elsewhere classified; Z86.31 Personal history of diabetic foot ulcer; Z79.84 Long term (current) use of oral hypoglycemic drugs | CPT/HCPCS: G0463 ==

== ENCOUNTER 2025-02-14 11:50 | Outpatient (CLI) | payer MEDICARE, SELFPAY | END 2025-02-14 11:51 | disposition home or self-care (01) | LOC: NFLDREF 02-17 14:05 | PROVIDERS: PCP Family Medicine; Referring Provider Family Medicine; Visit Provider Family Medicine | DX: N39.0 Urinary tract infection, site not specified (principal) | CPT/HCPCS: 87086 ==